=== PATIENT | male | born 1985 | race Caucasian/White ===

== ENCOUNTER 2020-03-28 21:11 | Emergency (ER) | payer OTHER, SELFPAY ==
--- OUTSIDE RECORDS SUMMARY | 2020-03-28 21:15 | XMS REPORT | Summary of Care ---
:1985 Author Organization [facility] Address [address] [place] [id number] Care Team Providers Name Role Phone DO Piyush Primary Care Provider Reason for Referral (Routine) Status Reason Specialty Diagnoses / Referred By Contact Refe rred To Procedures Contact New Request Diagnoses Morbid obesity with body mass index of 50 or higher Hussain Schwarz MD Syed, Procedures Discharge Follow-up: PCP TERRY PICKETT; [address] [place] [address] DO Terry [place], [place] [address] [place] [address] Phone: [facility] [place] [address] Fax: MRI/CAT Scan (STAT) Status Reason Specialty Diagnoses / Referred By Referred To Procedures Contact Contact New Request Diagnostic Diagnoses Suspected Covid-19 Virus Infection Hussain Schwarz, Radiology Procedures CT CHEST PULMONARY ANGIOGRAM [address] [place] [id number] Radiology Services (KELLI) Status Reason Specialty Diagnoses / Referred By Referred To Procedures Contact Contact New Request Diagnostic Diagnoses SOB (shortness of breath) Suspected Covid-19 Virus Infection Laci Puente Radiology Procedures XR CHEST 1 VW [place] [address] [address] Reason for Visit Reason Comments Cough Auth/Cert Status Reason Specialty Diagnoses / Referred By Referred To Procedures Contact Contact Emergency Medicine [facility] [address] [place] [address] Fax: Encounter Details Date Type Department Care Team Description 03/26/2020 - Emergency ADC Intensive Care Laci Puente, PAC [address] [facility] [address] [place] [address] Suspected Covid-19 03/27/2020 Unit Hussain Schwarz MD [address] [place] [id number] Virus Infection [address] [place] [address] [place], [place] [id number] Allergies Active Allergy Reactions Severity Noted Date Comments Aspirin Anaphylaxis 06/04/2014 Vancomycin Anaphylaxis 06/04/2014 Red man syndrom e documented as of this encounter (statuses as of 03/27/2020) Medications Medication Sig Dispensed Refills Start Date End Date Status foLIC acid 1 mg Take 1 tablet 30 tablet 0 04/19/2019 Active tabletIndications: by mouth Alcoholic cirrhosis daily. of liver with ascites lactulose 10 gram/15 Take 45 mL by 1 Bottle 3 05/15/2019 Active mL mouth 3 solutionIndications: (three) times Alcoholic cirrhosis daily. of liver with ascites propranolol 20 mg Take 1 tablet 60 tablet 2 05/15/2019 Active tabletIndications: by mouth 2 Alcoholic cirrhosis (two) times of liver with daily. ascites thiamine 100 mg Take 1 tablet 30 tablet 0 05/15/2019 Active tabletIndications: by mouth Alcoholic cirrhosis daily. of liver with ascites SPIRONOLACTONE 100 TAKE TWO (2) 60 tablet 1 12/30/2019 Active mg TABLET(S) BY tabletIndications: MOUTH ONCE A Alcoholic cirrhosis DAY. of liver with ascites SERTraline (ZOLOFT) Take 25 mg by 0 Active 25 mg tablet mouth daily. trazodone HCl Take 200 mg by 0 A ctive (TRAZODONE ORAL) mouth at bedtime. furosemide 80 mg Take one 30 tablet 2 06/17/2019 Di scontinued tabletIndications: tablet twice 0 Alcoholic cirrhosis daily for 5 of liver with days followed ascites by one tablet daily rifAXIMin (XIFAXAN) Take 1 tablet 60 tablet 5 06/18/2019 09/17 /202 Discontinued 550 mg by mouth 2 0 tabletIndications: (two) times Hepatic daily. encephalopathy documented as of this encounter (statuses as of 03/27/2020) Active Problems Problem Noted Date Suspected Covid-19 Virus Infection 03/26/2020 Alcoholic cirrhosis of liver with ascites 06/18/2019 Morbid obesity with body mass index of 50 or higher GI bleed 04/05/2019 Penile cellulitis 06/04/2014 documented as of this encounter (statuses as of 03/27/2020) Immunizations Name Administration Dates Next Due Influenza Virus Vaccine Quad .5 mL IM 6+ MO 04/18/2019 Pneumococcal Polysaccharide, PPSV23 (PNEUMOVAX) 04/18/2019 documented as of this encounter Social History Tobacco Use Types Packs/Day Years Used Date Former Smoker 1 10 Smokeless Tobacco: Never Used Alcohol Use Drinks/Week oz/Week Comments Yes 60 Cans of beer 60.0 Sex Assigned at Date Recorded Not on file COVID-19 Exposure Response Date Recorded In the last month, have you been in contact with No / Unsure 03/26/2020 11:11 AM CDT someone who was confirmed or suspected to have Coronavirus / COVID-19? documented as of this encounter Last Filed Vital Signs Vital Sign Reading Time Taken Comments Blood Pressure 128/81 03/27/2020 11:38 AM CDT Pulse 87 03/27/2020 11:38 AM CDT Temperature 36.8 C (98.3 F) 03/27/2020 11:38 AM CDT Respiratory Rate 16 03/27/2020 7:45 AM CDT Oxygen Saturation 91% 03/27/2020 11:38 AM CDT Inhaled Oxygen Concentration - - Weight 156.5 kg (345 lb) 03/27/2020 4:10 AM CDT Height - - Body Mass Index 48.12 11/09/2019 8:06 PM CDT documented in this encounter Discharge Instructions AttachmentsThe following attachments cannot be sent through Care Everywhere.Cold Virus, Understanding (Iraqi)Oxygen, Using at Home (Iraqi)documented in this encounter Progress Notes Danita Payton LMSW - 03/27/2020 2:37 PM CDTSummary: Inpatient Scheduling [facility]ICE PRES[facility] MARKETING [employer] DEVELOPMENT spoke with patient prior to discharge to assist with scheduling hospital follow up appointment.Pt was agreeable to assistance. JAJA was able to schedule patient with a hospital follow up with Dr. Pickett for 04/09/2020 at 2:50pm. Pt made aware that currently there are no other referral recommendations, but should any arise someone would be contacting him to assist with scheduling. Patient acknowledged. JAJA will document and assign referral once it is made available. Danita Payton LMSW Web Ui Software Engineer - Community Wellness and Outreach Community and Population Health [facility] [place] - 7th floor Office: [phone] (Not for patient use) [email or web address] Merlin Kelley RN - 03/27/2020 2:36 PM CDTCare Management Social Functional Assessment Patient Name: Adam Devi Age: [age] year old Sex: male Patient's Previous Admission Date at [facility]: 04/05/2019 Current diagnosis and co-morbidities: Suspected COVID 19 Virus Infection Readmission Questions: Was patient discharged from any acute care hospital within the last 30 days: No Social Functional Assessment: Primary language spoken/preferred: Iraqi Mental Status: Alert & Oriented to Person,Place & Time Information given by: Self Patient's support system: Parent Name and number of support system: Niurka Stuart mother [phone] Primary Senior Linux Unix Administrator: Self MPOA: Same as support system Living Arrangement: Home Address of living arrangement : [address] [place] [address] [address] [facility] Persons living in home: Same as support system Barriers to returning home: None Baseline functional status- ambulation: Independent Functional status-baseline personal care: Independent Baseline functional status- driving: Independent Baseline functional status- grocery shopping: Independent Functional status-baseline housekeeping: Independent Functional status-baseline meal prep: Independent Current functional status same as prior: Yes Do you have a PCP?: Yes Name of PCP: Terry Pickett Home Health Care Agency: No Provider Services: No DME Company: No Equipment: None Hemodialysis: No Funding Resources: Self Pay Prescription coverage plan: Self Pay Pharmacy where meds are filled: ([facility]) Anticipated services prior to disharge: Continue Medical Eval Expected mode of discharge transportation: Same as support system Additional info required for discharge planning: Pending medical evaluation Recommended discharge plan: DME Referral SFA Complete: Social Functional Assessment complete: Yes Alcohol Use Screening (AUDIT-C) How often do you have a drink containing alcohol?: Never SCORE: 0 Role of Care Management explained. Yes Merlin Kelley RN, BSN [facility] Director Of Patient Safety O [phone] Merlin Casillas RN - 03/27/2020 11:46 AM CDTHome O2 contract faxed to [facility] CM Admin, awaiting approval for unfunded DME contract. Merlin Kelley RN, BSN [facility] Director Of Patient Safety O [phone] Danita Mccarthy LMSW - 03/27/2020 11:27 AM CDTSummary: Inpatient Scheduling [facility] [employer]ETING [employer] DEVELOPMENT attempted to contact patient to assist with scheduling hospital follow up appointment. Pt did not answer either room or cell phone. LVM to return call to HFU team VICE PRESIDENT MARKETING [employer] DEVELOPMENT will attempt to reach out again at a later time. Danita Payton LMSW Web Ui Software Engineer - Community Wellness and Outreach Community and Population Health [facility]a Montes [place] - 7th floor Office: [phone] (Not for patient use) [email or web address] Cathi Bernard RT - 03/27/2020 11:17 AM CDTO2 Saturation at REST on Room Air = 92% EXERTION TEST O2 Saturation at Rest on Room Air = 92% O2 Saturation being Exerted on Room Air = 86% O2 Saturation being Exerted on 2 LPM of Oxygen = 95% documented in this encounter H&P Notes Flora Mooney FNP - 03/26/2020 5:16 PM CDT [facility] Hospitalist Admission H&P Date of Service: 03/26/2020 CHIEF COMPLAINT: cough HISTORY OF PRESENT ILLNESS Adam Devi is a 34 year old male with history of HTN, diabetes, alcohol cirrhosis who presents with gradual onset of a cough that presented 2 days ago. Patient worsening symptoms of shortness of breath, fatigue, diarrhea, nausea, vomiting, loss of appetite, and malaise. Patient reports he's been alcohol free for 6 months, he had a relapse. Patient denies fever, chills,chest pain radiating to arm or neck, leg or calf pain or edema PAST MEDICAL HISTORY Past Medical History: Diagnosis Date Alcohol dependence Cirrhosis, alcoholic Deliberate self-cutting Diabetes HTN (hypertension) Suicidal ideation PAST SURGICAL HISTORY History reviewed. No pertinent surgical history. ALLERGIES Allergies Allergen Reactions Aspirin Anaphylaxis Vancomycin Anaphylaxis Red man syndrome MEDICATIONS Current home medication list reviewed: Current Discharge Medication List STOP taking these medications SERTraline (ZOLOFT) 25 mg tablet Comments: Reason for Stopping: trazodone HCl (TRAZODONE ORAL) Comments: Reason for Stopping: SPIRONOLACTONE 100 mg tablet Comments: Reason for Stopping: furosemide 80 mg tablet Comments: Reason for Stopping: lactulose 10 gram/15 mL solution Comments: Reason for Stopping: propranolol 20 mg tablet Comments: Reason for Stopping: thiamine 100 mg tablet Comments: Reason for Stopping: foLIC acid 1 mg tablet Comments: Reason for Stopping: FAMILY HISTORY Family History Problem Relation Age of Onset No Significant Medical Problems Mother Cancer Maternal Grandmother SOCIAL HISTORY Social History Socioeconomic History Marital status: Single Spouse name: Not on file Number of children: Not on file Years of education: Not on file Highest education level: Not on file Occupational History Not on file Social Needs Financial resource strain: Not on file Food insecurity Worry: Not on file Inability: Not on file Transportation needs Medical: Not on file Non-medical: Not on file Tobacco Use Smoking status: Former Smoker Packs/day: 1.00 Years: 10.00 Pack years: 10.00 Smokeless tobacco: Never Used Substance and Sexual Activity Alcohol use: Yes Alcohol/week: 60.0 standard drinks Types: 60 Cans of beer per week Drug use: Not on file Sexual activity: Not on file Lifestyle Physical activity Days per week: Not on file Minutes per session: Not on file Stress: Not on file Relationships Social connections Talks on phone: Not on file Gets together: Not on file Attends sikhism service: Not on file Active member of club or organization: Not on file Attends meetings of clubs or organizations: Not on file Relationship status: Not on file Intimate partner violence Fear of current or ex partner: Not on file Emotionally abused: Not on file Physically abused: Not on file Forced sexual activity: Not on file Other Topics Concern Not on file Social History Narrative Lives with mom and grandmother REVIEW OF SYSTEMS Constitutional: negative fevers/chills, weight changes Eyes: negative acute blurry vision, eye discharge Ears, Nose, Mouth, Throat: negative dysphagia, runny nose, sore throat, tinnitus Cardiovascular: positive chest pain secondary to cough Respiratory: Positive sob, cough Gastrointestinal: Positive diarrhea, nausea, vomiting Genitourinary: Negative dysuria, hematuria Musculoskeletal: Positive myalgias Integumentray: negative rash, itching Neurological: negative syncope, focal weakness Psychiatric: negative hallucinations PHYSICAL EXAMINATION BP (!) 136/92 | Pulse 92 | Temp 36.7 C (98.1 F) | Resp 18 | Wt 131.5 kg (290 lb) | SpO2 95% | BMI 40.45 kg/m General: No acute distress, tremers HEENT: Normal oral mucosa, anicteric sclerae, NCAT Cardiovascular: RRR, strong symmetric radial pulses Lungs: CTAB Abdomen: Soft, NTND Musculoskeletal: Normal ROM, normal muscle mass Genitourinary: Normal Skin: No rash, lesions Neuro: AAOx3, no focal deficits Psych: Normal affect LABS - reviewed pertinent labs as below: CBC BMP PT/INR WBC x10^3 (/uL) Date Value 06/04/2014 6.9 WBC (10*3/L) Date Value 03/26/2020 4.03 (L) NA Date Value 03/26/2020 135 mmol/L 06/05/2014 135 MMOL/L No results found for: PT RBC x10^6 (/uL) Date Value 06/04/2014 4.84 RBC (10*6/L) Date Value 03/26/2020 4.38 K Date Value 03/26/2020 4.0 mmol/L 06/05/2014 4.4 MMOL/L INR (no units) Date Value 03/26/2020 1.4 PLT x10^3 (/uL) Date Value 06/04/2014 166 PLT (10*3/L) Date Value 03/26/2020 29 (LL) CALCIUM Date Value 03/26/2020 8.3 mg/dL (L) 06/05/2014 9.1 MG/DL HGB Date Value 03/26/2020 13.6 g/dL 06/04/2014 15.3 G/DL CL Date Value 03/26/2020 101 mmol/L 06/05/2014 102 MMOL/L aPTT HCT (%) Date Value 03/26/2020 40.0 06/04/2014 43.3 BUN Date Value 03/26/2020 5 mg/dL (L) 06/05/2014 6 MG/DL (L) APTT Patient (Seconds) Date Value 03/26/2020 38 CREATININE Date Value 03/26/2020 0.54 mg/dL (L) 06/05/2014 0.64 MG/DL IMAGING - reviewed, pertinent results as below: Hospital Encounter on 03/26/20 CT CHEST PULMONARY ANGIOGRAM Narrative HISTORY: Rule out P.E. TECHNIQUE: Contrast-enhanced 64-mutidetector CT scan of the chest was completed with intravenous injection of Omnipaque-350 non ionic contrast medium. Subsequently numerous sagittal, coronal and MIP reformations were generated. FINDINGS: Visualized portions of the thyroid gland appear normal. No abnormalities seen in the trachea or central bronchial airways. Contrast bolus opacification of the pulmonary arterial circulation is suboptimal, therefore, only large central pulmonary thromboemboli can be ruled out by this examination. No acute pneumonia. No pleural effusion or pericardial effusion. No pneumothorax or pneumomediastinum. Calcified granuloma noted in the left apical lung (55:385) with calcifications noted in the left hilar/perihilar lymph nodes. 4 mm nodule in the anterior right upper lobe (164:385). 2 mm nodule right lower lung (191:385). No enlarged lymph nodes are seen in the narda or the mediastinum. No significant coronary atherosclerosis. Short sliding hiatal hernia noted. Visualized upper abdomen showed liver findings of chronic liver disease with portal hypertension causing splenomegaly, dilated portal venous circulation and recanalized umbilical vein. Numerous gallstones are seen in the dependent portion of the gallbladder lumen without any signs of acute cholecystitis. CONCLUSIONS: 1. Suboptimal contrast bolus in the pulmonary arterial circulation. Therefore, only large pulmonary thromboemboli in the central pulmonary articular circulation can be ruled out by this examination. 2. Calcified granuloma in the left apical lung and 2 noncalcified nodules. 3. Abnormal CT appearance of liver consistent with chronic liver disease such as cirrhosis with portal hypertension. No ascites. 4. Numerous small gallstones without any evidence of acute cholecystitis. XR CHEST 1 VW Narrative HISTORY: SOB. FINDINGS: AP view of the chest showed is obtained and compared with 04/12/2019 study. Cardiac size is upper normal. Central pulmonary arteries are slightly dilated without any helen acute interstitial pulmonary edema. No acute pneumonia, pleural effusion, pulmonary congestion detected. CONCLUSIONS: No radiographic signs of acute cardiopulmonary disease. No new findings when compared with 04/12/2019 study. ASSESSMENT/PLAN Chance Paul Enriquez 34-year-old white male admitted for #Suspect Covid 19 virus PUI Complain of shortness of breath O2 sats 94% on RA Vitamin C 1000 mg Daily Zinc 220 mg Daily Supportive care Respiratory panel ordered Procalcitonin, C reactive, LDH, pending results D dimer 0.69 Ct chest pulmonary no PE, calcifications did granuloma left apical lobe, chronic liver disease with portal hypertension no ascites small gallstones no acute cholecystitis Legionella, strept pneumococcal Pending results Chest Xray findings normal findings PPE protocol followed #ETOH abuse/withdrawal CIWA precaution Serax tapered dose Ammonia 18 Continue lactulose 45 ML's 3 times a day Propranolol 20 mg Bid Folic acid + thiamine daily Spironolactone 100 mg daily started 50 mg daily Lasix 80 mg daily started 40 mg daily Rifaximin 550 mg bid Patient does not take he "cant afford it" #HTN Propranolol 20 mg BID Lasix 40 mg daily #DM A1c pending Patient reports not DM Prophylaxis: DVT- SCD Stress Ulcer: no indication for prophylaxis Advanced Care Planning (Z71.89) Above assessment and plan discussed at length with patient, patient expressed full understanding. Questions and concerned addressed, I spent 18 minutes discussing the advance care plan. Surrogate decision maker: self Level of care expected after discharge: home Code status: full code Smoking Cessation: (Z71.6) Tobacco user?: Former smoker Observation [place] WHEEL BRAIDER was viewed during this stay KAYLAN Muir Associated attestation - Hussain Schwarz MD - 03/26/2020 6:16 PM CDTI have independently seen and evaluated this patient. I agree with the note below including physicalexam and plan. In summary, patient is admitted for suspected COVID pneumonia. D-dimer elevated. CT PE pending. Hx alcoholic cirrhosis, severe thrombocytopenia but no evidence of DIC. CK very elevated concerning for rhabdomyolysis, start IVF. Trend CK. Rest of plan per below. documented in this encounter ED Notes Isela Ng RN - 03/26/2020 11:17 AM CDTPatient arrived via private car with c/o cough, sob, and fatigue. Symptoms began 2 days ago. Patient ambulated in place x1 minute; sats maintained 91% on room air. documented in this encounter Miscellaneous Notes Care Plan - Niki Sparks RN - 03/27/2020 5:17 AM CDT Problem: Pain Goal: Control of pain at or below patient's documented comfort goal Outcome: Progressing as expected Goal: Reduction in pain sensation Outcome: Progressing as expected Problem: Falls, Risk of Goal: Absence of falls Outcome: Progressing as expected Problem: Respiratory Function - Impaired Goal: Able to cough effectively Outcome: Progressing as expected Goal: Adequate oxygenation Outcome: Progressing as expected Goal: Adequate work of breathing Outcome: Progressing as expected Problem: Discharge Planning Goal: Absence of venous thromboembolism Outcome: Progressing as expected Goal: Adequate for discharge Outcome: Progressing as expected Goal: Effective communication Outcome: Progressing as expected Problem: Respiratory Function - Impaired Goal: Adequate oxygenation Outcome: Progressing as expected Goal: Adequate work of breathing Outcome: Progressing as expected D Nurse Note - Sheryl Norris RN - 03/26/2020 3:11 PM CDTNurse Report Report given to KLAUS Brink in ICU. Chief complaint, assessment findings and orders reviewed. Planof care discussed. Sharon Norris RN documented in this encounter Plan of Treatment Date Type Specialty Care Team Description 04/09/2020 Office Visit Internal Medicine Piyush, Colleen [address], [place] [phone] Name Type Priority Associated Diagnoses Date/Ti me BLOOD CULTURE SCREEN LAB STAT SOB (shortn ess of breath) 03/26/2020 1:01 PM CDT Suspected Covid-19 Virus Infection BLOOD CULTURE SCREEN LAB STAT SOB (shortn ess of breath) 03/26/2020 12:42 PM CDT Suspected Covid-19 Virus Infection Name Type Priority Associated Diagnoses Order S chedule CBC with Differential LAB Routine EVERY MORNING AT 0400 for 2 Occurrenc es starting 2019 until 0, 1 completed Basic Metabolic Panel (NA, LAB Routine E VERY MORNING AT 0400 K, CL, CO2, GLUCOSE, BUN, fo r 2 Occurrences CREATININE, CA) starting until 0, 1 completed VITAMIN D, 25-OH LAB Routine ONCE for 1 Occurrences starting 2019 until 0 CREATINE KINASE LAB Routine EVERY MORNIN G AT 0500 for 3 Days star ting 03/27/2020 unti l 03/29/2020, 1 c ompleted Health Maintenance Due Date Last Done Comments VARICELLA VACCINES (1 of 2 - 2-dose 1985 childhood series) DTaP,Tdap,and Td Vaccines (1 - Tdap) 12/19/2003 INFLUENZA VACCINE (#1) 2020 04/18/2019 Depression Screening 07/25/2020 07/25/2019, 04/14/2019 PNEUMOCOCCAL 0-64 YEARS COMBINED SERIES Completed 04/18/20 19 documented as of this encounter Procedures Procedure Name Priority Date/Time Associated Comments Diagnosis CBC WITH DIFF Routine 03/27/2020 4:23 Results fo r this AM CDT procedure are i n the results section. BASIC METABOLIC PANEL Routine 03/27/2020 4:23 Re sults for this (NA, K, CL, CO2, AM CDT procedure a re in GLUCOSE, BUN, the results CREATININE, CA) section. HEPATIC FUNCTION PANEL Add-on 03/27/2020 4:23 R esults for this ([id number]) AM CDT procedure are i n (ALB,T.PRO,BILI the results T,BU/BC,ALT,AST,ALK section. PHOS) MAGNESIUM Routine 03/27/2020 4:23 Results for this AM CDT procedure are i n the results section. CREATINE KINASE Routine 03/27/2020 4:23 Results for this AM CDT procedure are i n the results section. URINALYSIS Routine 03/26/2020 5:49 Results for this PM CDT procedure are i n the results section. RESPIRATORY PANEL BY STAT 03/26/2020 4:32 Res ults for this PCR PM CDT procedure are i n the results section. LACTIC ACID WHOLE STAT 03/26/2020 4:30 Result s for this BLOOD PM CDT procedure are i n the results section. PROCALCITONIN STAT 03/26/2020 4:29 Results fo r this PM CDT procedure are i n the results section. AMMONIA, PLASMA Routine 03/26/2020 4:29 Results for this PM CDT procedure are i n the results section. COVID-19 (PCR STAT 03/26/2020 3:23 Results fo r this MOLECULAR TESTING) PM CDT procedure are in the results section. CT CHEST PULMONARY STAT 03/26/2020 3:08 Suspected Covid-19 Results for this ANGIOGRAM PM CDT Virus Infection procedure ar e in the results section. FIBRINOGEN STAT Add-On 03/26/2020 1:33 Results for this PM CDT procedure are i n the results section. ACTIVATED PARTIAL STAT 03/26/2020 1:33 Suspected Covid-19 Results for this THRMPLAS ERIKA PM CDT Virus Infection procedure ar e in the results section. D-DIMER STAT Add-On 03/26/2020 1:33 Results for this PM CDT procedure are i n the results section. PROTHROMBIN TIME / INR STAT 03/26/2020 1:33 Suspected Covi d-19 Results for this PM CDT Virus Infection procedure ar e in the results section. BLOOD CULTURE SCREEN STAT 03/26/2020 1:01 SOB (shortness o f PM CDT breath) Suspected Covid-19 Virus Infection COVID-19 (ID NOW RAPID STAT 03/26/2020 1:00 SOB (shortness of Results for this TESTING) PM CDT breath) procedure are in Suspected Covid-19 the resul ts Virus Infection section. XR CHEST 1 VW KELLI 03/26/2020 12:56 SOB (shortness of Resul ts for this PM CDT breath) procedure are in Suspected Covid-19 the resul ts Virus Infection section. DIFF CONSULT Routine 03/26/2020 12:53 Results for this INTERPRETATION PM CDT procedure are in the results section. CBC WITH DIFF STAT 03/26/2020 12:53 SOB (shortness of Resul ts for this PM CDT breath) procedure are in Suspected Covid-19 the resul ts Virus Infection section. DIFF CONSULT STAT Add-On 03/26/2020 12:53 Results for this INTERPRETATION PM CDT procedure are in the results section. COMP. METABOLIC PANEL STAT 03/26/2020 12:53 SOB (shortness of Results for this (10422) PM CDT breath) procedure are in Suspected Covid-19 the resul ts Virus Infection section. THYROID STIMULATING STAT Add-On 03/26/2020 12:53 Resu lts for this HORMONE PM CDT procedure are i n the results section. MAGNESIUM STAT 03/26/2020 12:53 SOB (shortness of Result s for this PM CDT breath) procedure are in Suspected Covid-19 the resul ts Virus Infection section. CREATINE KINASE STAT Add-On 03/26/2020 12:53 Results for this PM CDT procedure are i n the results section. LACTIC ACID WHOLE STAT 03/26/2020 12:52 SOB (shortness of R esults for this BLOOD PM CDT breath) procedure are in Suspected Covid-19 the resul ts Virus Infection section. BLOOD CULTURE SCREEN STAT 03/26/2020 12:42 SOB (shortness o f PM CDT breath) Suspected Covid-19 Virus Infection EKG-12 LEAD Routine 03/26/2020 12:18 PM CDT NOTICE OF PRIVACY Routine 03/26/2020 11:11 PRACTICES AM CDT CONSENT/REFUSAL FOR Routine 03/26/2020 11:11 DIAGNOSIS AND AM CDT TREATMENT documented in this encounter Results HEPATIC FUNCTION PANEL (16412) (ALB,T.PRO,BILI T,BU/BC,ALT,AST,ALK PHOS) (03/27/2020 4:23 AM CDT) Pathologist Sig nature TOTAL BILI 1.8 (H) 0.1 - 1.1 mg/dL [facility] BILI UNCON 1.4 (H) 0.1 - 1.1 mg/dL [facility] BILI CONJ 0.0 0.0 - 0.3 mg/dL [facility] T PROTEIN 6.2 (L) 6.3 - 8.2 g/dL [facility] ALBUMIN 2.8 (L) 3.5 - 5.0 g/dL [facility] ALK PHOS 105 34 - 122 U/L [facility] ALTv 37 5 - 50 U/L [facility] AST(SGOT) 98 (H) 13 - 40 U/L [facility] Specimen Blood - LINE, VENOUS Performing Organization Address [facility] Phone Number [facility] CLIA: [id number] [place] [address] CREATINE KINASE (03/27/2020 4:23 AM CDT) Pathologist Sig [facility] CK 1,161 (H) 33 - 194 U/L [facility] Specimen Blood - LINE, VENOUS Performing Organization Address [facility] Phone Number [facility] CLIA: [id number] [place] [address] Magnesium Serum (03/27/2020 4:23 AM CDT) Pathologist Sig [facility] MAGNESIUM 2.0 1.7 - 2.4 mg/dL [facility] Specimen Blood - LINE, VENOUS Performing Organization Address [facility] Phone Number [facility] CLIA: [id number] [place] [address] Basic Metabolic Panel (NA, K, CL, CO2, GLUCOSE, BUN, CREATININE, CA) (03/27/2020 4:23 AM CDT) Pathologist Sig nature NA 133 (L) 135 - 145 [facility] mmol/L [facility] K 3.6 3.5 - 5.0 [facility] mmol/L [facility] CL 101 98 - 108 mmol/L [facility] CO2 TOTAL 28 23 - 31 mmol/L [facility] AGAP 4 2 - 16 [facility] BUN 9 7 - 23 mg/dL [facility] GLUCOSE 135 (H) 70 - 110 mg/dL [facility] CREATININE 0.61 0.60 - 1.25 [facility] mg/dL [facility] CALCIUM 7.9 (L) 8.6 - 10.6 [facility] mg/dL [facility] eGFR Calculation 150.4 mL/min/1.73m2 [facility] ([facility] Eritrean) eGFR Calculation 182.3 mL/min/1.73m2 [facility] ([facility] Specimen Blood - LINE, VENOUS Narrative Performed At Association of Glomerular Filtration Rate (GFR) [facility] and Staging of Kidney Disease* + + +- + | GFR (mL/min/1.73 m2) | With Kidney Damage | Without Kidney Damage + + +- + | >90 | Stage one | Normal + + +- + | 60-89 | Stage two | Decreased GFR + + +- + | 30-59 | Stage three | Stage three + + +- + | 15-29 | Stage four | Stage four + + +- + | <15 (or dialysis) | Stage five | Stage five + + +- + *Each stage assumes the associated GFR level has been in effect for at least three months. Stages 1 to 5, with or without kidney disease, indicate chronic kidney disease. Notes: Determination of stages one and two (with eGFR >59mL/min/1.73 m2) requires estimation of kidney damage for at least three months as defined by structural or functional abnormalities of the kidney, manifested by either: Pathological abnormalities or Markers of kidney damage (including abnormalities in the composition of the blood or urine or abnormalities in imaging tests). Performing Organization Address City/State/Zipcode Phone Number [facility] CLIA: [id number] [place] [address] CBC with Differential (03/27/2020 4:23 AM CDT) WBC 4.54 4.20 - 10.70 [facility] 10*3/L [facility] RBC 4.00 (L) 4.26 - 5.52 [facility] 10*6/L [facility] HGB 12.5 12.2 - 16.4 [facility] g/dL [facility] HCT 37.1 (L) 38.4 - 49.3 % [facility] MCV 92.8 81.7 - 95.6 [facility] LABORATORY MCH 31.3 26.1 - 32.7 [facility]ORY MCHC 33.7 31.2 - 35.0 [facility] g/dL [facility] RDW-SD 48.0 38.5 - 51.6 [facility] LABORATORY RDW-CV 14.1 12.1 - 15.4 % [facility] PLT 28 (LL) 150 - 328 [facility] 10*3/L [facility] MPV 12.3 9.8 - 13.0 fL [facility] IPF % 8.1Comment: Platelet 1.2 - 10.7 % [facility] count measured by HOSPITAL fluorescence method. LABORATORY NRBC/100 WBC 0.0 0.0 - 10.0 [facility] /100 WBCs [facility] NRBC x10^3 <0.01 10*3/L [facility] GRAN MAT (NEUT) % 54.6 % [facility] IMM GRAN % 0.40 % [facility] LYMPH % 20.5 % [facility] MONO % 19.4 % [facility] EOS % 4.2 % [facility] BASO % 0.9 % [facility] GRAN MAT 2.48 1.99 - 6.95 [facility] x10^3(ANC) 10*3/uL [facility] IMM GRAN x10^3 <0.03 0.00 - 0.06 [facility] 10*3/uL [facility] LYMPH x10^3 0.93 (L) 1.09 - 3.23 [facility] 10*3/uL [facility] MONO x10^3 0.88 0.36 - 1.02 [facility] 10*3/uL [facility] EOS x10^3 0.19 0.06 - 0.53 [facility] 10*3/uL [facility] BASO x10^3 0.04 0.01 - 0.09 [facility] 10*3/uL [facility] Specimen Blood - LINE, VENOUS Performing Organization Address City/State/Zipcode Phone Number [facility] CLIA: [id number] [place] [address] URINALYSIS (03/26/2020 5:49 PM CDT) Pathologist Sig nature APPEARANCE Clear Clear [facility] COLOR Carol (A) Yellow [facility] PH 6.0 4.8 - 8.0 [facility] SP GRAVITY 1.060 (H) 1.003 - 1.030 [facility] GLU U QUAL Normal Normal [facility] BLOOD 3+ (A) Negative [facility] KETONES Negative Negative [facility] PROTEIN 500 mg/dL (A) Negative [facility] UROBILIN 4.0 mg/dL (A) Normal [facility] BILIRUBIN 2 mg/dL (A) Negative [facility] NITRITE Negative Negative [facility] LEUK SEBAS Negative Negative [facility] RBC/HPF 53 (H) 0 - 3 HPF [facility] WBC/HPF 10 (H) 0 - 5 HPF [facility] BACTERIA Negative Negative [facility] SQ EPITH 1 HPF [facility] Ictotest Positive [facility] Specimen Urine - URINE, CLEAN CATCH Performing Organization Address City/State/Zipcode Phone Number [facility] CLIA: [id number] [place] [address] RESPIRATORY PANEL BY PCR (03/26/2020 4:32 PM CDT) Adenovirus Negative Negative [facility] Coronavirus HKU1 Negative Negative [facility] Coronavirus NL63 Negative Negative [facility] Coronavirus 229E Negative Negative [facility] Coronavirus OC43 Negative Negative [facility] Human Metapneumovirus Negative Negative [facility] Human Positive (A) Negative [facility] Rhinovirus/Enterovirus SERVICES Influenza A Negative Negative [facility] Influenza B Negative Negative [facility] Parainfluenza Virus 1 Negative Negative [facility] Parainfluenza Virus 2 Negative Negative [facility] Parainfluenza Virus 3 Negative Negative [facility] Parainfluenza Virus 4 Negative Negative [facility] Respiratory Syncytial Negative Negative [facility] Virus SERVICES Bordetella parapertussis Negative Negative [facility] Bordetella pertussis Negative Negative [facility] Chlamydia pneumoniae Negative Negative [facility] Mycoplasma pneumoniae Negative Negative [facility] Specimen Swab - NASOPHARYNGEAL SWAB Narrative Performed At Negative: [facility] A negative result does not rule-out infection. This assay does not test for all potential infectio us agents. Positive: A positive test result does not necessarily indicate t he presence of viable organism. Performing Organization Address City/State/Zipcode Phone Number [facility] CLIA: [id number] [place] [address] [place] [address] Lactic Acid Whole Blood (03/26/2020 4:30 PM CDT) Pathologist Sig scott LACTIC ACID 2.01 mmol/L [facility] Specimen Blood - ARM, LEFT Performing Organization Address [facility] Phone Number [facility] CLIA: [id number] [place] [address] AMMONIA, PLASMA (03/26/2020 4:29 PM CDT) Pathologist Sig nature AMMONIA 18 9 - 33 umol/L [facility] Specimen Blood - ARM, LEFT Performing Organization Address [facility] Phone Number [facility] CLIA: [id number] [place] [address] PROCALCITONIN (03/26/2020 4:29 PM CDT) Pathologist Sig nature Procalcitonin 0.05 <0.07 ng/mL [facility] Specimen Blood - ARM, RIGHT Narrative Performed At INTERPRETATION OF PROCALCITONIN RESULTS IN ADULTS >= 1 8 [facility] YEARS OF AGE Initiation and discontinuation of antibiotics on patie nts with suspected or confirmed Lower Respiratory Tract Infection in Adults >= 18 years of age. + + + +----- ------ + |Procalcitonin |Interpretation |Antibiotic |Considerations |ng/mL | |recommend ation | + + + +----- ------ + | <0.1 | Bacterial | Strongly | | | infection very | discouraged | Overruling: | | unlikely | | Clinically unstable + + + + H igh risk for adverse | <0.25 | Bacterial | Discouraged | outcome | | infection | | SEE IMPORTANT NOTE | | unlikely | | + + + +----- ------ + | >=0.25 | Bacterial | Encouraged | | | infection | | | | likely | | Consider treatment failure + + + + if l evels does not decrease | >0.5 | Bacterial | Strongly | appropriately | | infection very | encouraged | | | likely | | + + + +----- ------ + Discontinuation of antibiotics in high-acuity patients with suspected or confirmed sepsis in Adults >= 18 years of age. + + + +----- ------ + |Procalcitonin |Interpretation |Antibiotic |Considerations |ng/mL | |recommend ation | + + + +----- ------ + | <0.25 | Bacterial | Strongly | | | infection very | discouraged | Overruling: | | unlikely | | Clinically unstable + + + + H igh risk for adverse | <0.5 or drop | Bacterial | Discouraged | outcome | >80% from | infection | | SEE IMPORTANT NOTE | highest PCT | unlikely | | | level | | | + + + +----- ------ + | >=0.5 | Bacterial | Encouraged | | | infection | | | | likely | | Consider treatment failure + + + + if l evels does not decrease | >1.0 | Bacterial | Strongly | appropriately | | infection very | encouraged | | | likely | | + + + +----- ------ + Percentage of drop of Procalcitonin calculation for Discontinuation of antibiotics in high-acuity patients with suspected or confirmed sepsis in Adults >= 18 years of age. Procalcitonin highest{}-Procalcitonin current{} Delta Procalcitonin = x100% Procalcitonin current {} IMPORTANT NOTE: Procalcitonin may be elevated without bacterial infection by physiologic stress related to t rauma, villalta, chronic dialysis, metastatic cancer, surgery in the past seven days, malaria, some fungal infections, and some forms of vasculitis. The interpretation algorithm may not apply to patients with immunosuppression (equivalent o f >10 mg of prednisone daily), HIV with CD4 cell count < 350 cells/mm3, active malignancy on systemic chemotherapy, solid organ transplant or hematopoietic stem cell transplant ation, or hospital acquired pneumonia. Additionally, some cli nical trials of procalcitonin have excluded patients with sh ock requiring vasopressor use, acute respiratory failure requiring mechanical ventilation, or those with known lung abscess/empyema. For further information please refer to: [email or web address] Performing Organization Address [facility] Phone Number [facility] CLIA: [id number] [place] [address] [place] [address] CORONAVIRUS COVID-19 TESTING (03/26/2020 3:23 PM CDT) Pathologist Sig scott SARS-CoV-2 PCR Not Detected Not Detected [facility] Specimen Swab - NASOPHARYNGEAL SWAB Narrative Performed At [employer] SARS-CoV-2 Assay is a nucleic acid [facility] amplification test intended for the qualitative detect ion of RNA from SARS-CoV-2 from nasopharyngeal (TERRAPIN FISHER) specimens . It is used under Emergency Use Authorizatio n (EUA) by FDA. A positive result is indicative of the presence of SARS-CoV-2 RNA. Clinical correlation with patient hi story and other diagnostic information is necessary to deter mine patient infection status. A negative (Not Detected) result does not preclude SARS-CoV-2 infection. Clinical correlation with danna ent history and other diagnostic information should be use d in patient management decisions. Invalid: Unable to generate a valid test result on thi s specimen. Please submit a new specimen for repeat te sting if clinically indicated. Performing Organization Address [facility] Phone Number [facility] CLIA: [id number] [place], [place] [id number] [phone] [place] [address] CT CHEST PULMONARY ANGIOGRAM (03/26/2020 3:08 PM CDT) Specimen Narrative Performed At HISTORY: Rule out P.E. PACS/VR/DOSE TECHNIQUE: Contrast-enhanced 64-mutidete ctor CT scan of the chest was completed with intravenous injection of Omnipaque-35 0 non ionic contrast medium. Subsequently numerous sagittal, coronal and LA P reformations were generated. FINDINGS: Visualized portions of the thy roid gland appear normal. No abnormalities seen in the trachea or fabiola tral bronchial airways. Contrast bolus opacification of the pulm onary arterial circulation is suboptimal, therefore, only large centra l pulmonary thromboemboli can be ruled out by this examination. No acute pneumonia. No pleural effusion or pericardial effusion. No pneumothorax or pneumomediastinum. Calci fied granuloma noted in the left apical lung (55:385) with calcifications noted in the left hilar/perihilar lymph nodes. 4 mm nodule in the anterior right upper lobe (164:385). 2 mm nodule right lower lung (191:385). No enlarged lymph nodes are seen in the narda or the mediastinum. No significant coronary atherosclerosis. Short sliding hiatal hernia noted. Visua lized upper abdomen showed liver findings of chronic liver disease with p ortal hypertension causing splenomegaly, dilated portal venous circulation and re canalized umbilical vein. Numerous gallstones are seen in th e dependent portion of the gallbladder lumen without any signs of a cute cholecystitis. CONCLUSIONS: 1. Suboptimal contrast bolus in the pulm onary arterial circulation. Therefore, only large pulmonary thromboe mboli in the central pulmonary articular circulation can be ruled out b y this examination. 2. Calcified granuloma in the left apical lung and 2 n oncalcified nodules. 3. Abnormal CT appearance of liver consi stent with chronic liver disease such as cirrhosis with portal hypertensi on. No ascites. 4. Numerous small gallstones without any evidence of a cute cholecystitis. Procedure Note [facility], Radiant Results Inft User - 2019 3:29 PM CDT HISTORY: Rule out P.E. TECHNIQUE: Contrast-enhanced 64-mutidete ctor CT scan of the chest was completed with intravenous injection of Omnipaque-350 non ionic contrast medium. Subsequently numerous sagittal, coronal and MIP reformations were generated. FINDINGS: Visualized portions of the thy roid gland appear normal. No abnormalities seen in the trachea or fabiola tral bronchial airways. Contrast bolus opacification of the pulm onary arterial circulation is suboptimal, therefore, only large centra l pulmonary thromboemboli can be ruled out by this examination. No acute pneumonia. No pleural effusion or pericardial effusion. No pneumothorax or pneumomediastinum. Calci fied granuloma noted in the left apical lung (55:385) with calcifications noted in the left hilar/perihilar lymph nodes. 4 mm nodule in the anterior right upper lobe (164:385). 2 mm nodule right lower lung (191:385). No enlarged lymph nodes are seen in the narda or the mediastinum. No significant coronary atherosclerosis. Short sliding hiatal hernia noted. Visua lized upper abdomen showed liver findings of chronic liver disease with p ortal hypertension causing splenomegaly, dilated portal venous circ ulation and recanalized umbilical vein. Numerous gallstones are seen in th e dependent portion of the gallbladder lumen without any signs of a cute cholecystitis. CONCLUSIONS: 1. Suboptimal contrast bolus in the pulm onary arterial circulation. Therefore, only large pulmonary thromboe mboli in the central pulmonary articular circulation can be ruled out b y this examination. 2. Calcified granuloma in the left apica l lung and 2 noncalcified nodules. 3. Abnormal CT appearance of liver consi stent with chronic liver disease such as cirrhosis with portal hypertensi on. No ascites. 4. Numerous small gallstones without any evidence of acute cholecystitis. Performing Organization Address City/State/Zipcode Phone Number PACS/VR/DOSE D-DIMER (03/26/2020 1:33 PM CDT) Pathologist Sig nature D-DIMER 0.69 (H) <0.41 g/mL (FEU) [facility] Specimen Blood - VENOUS Narrative Performed At This test may be used in conjunction with a [facility] clinical pretest probability (PTP) assessment model to exclude venous thromboembolism (VTE) in patients suspected of deep venous thrombosis (DVT) and pulmonary embolism (PE) A D-Dimer value less than 0.50 g/ml (FEU) has a negative predicative value of 96 to 100% (95% CI)and 97 to 100% (95% CI) as an aid in the diagnosis of deep vein thrombosis (DVT) and pulmonary embolism when there is low or moderate pretest probability of PE or DVT. D-Dimer values are expressed in initial fibrinogen equivalent units (FEU)" The assay results should be used with other information, including the clinical context, in forming a diagnosis. Performing Organization Address [facility] Cent[facility] Phone Number [facility] CLIA: [id number] [place] [address] FIBRINOGEN (03/26/2020 1:33 PM CDT) [facility] Fibrinogen 407 214 - 470 mg/dL [facility] Specimen Blood - VENOUS Performing Organization Address [facility] Phone Number [facility] CLIA: [id number] [place] [address] LABORATORY [address] [facility] aPTT (03/26/2020 1:33 PM CDT) [facility] APTT Patient 38 23 - 38 Seconds [facility] Specimen Blood - VENOUS Narrative Performed At The [facility] patient population mean normal value [facility] for aPTT is 30 seconds. Performing Organization Address [facility] Phone Number [facility] CLIA: [id number] [place] [address] PROTHROMBIN TIME / INR (03/26/2020 1:33 PM CDT) [facility] PROTIME PATIENT 16.1 (H) 12.0 - 14.7 [facility] LABORATORY INR 1.4Comment: Normal [facility] INR <1.1; Warfarin [facility] Therapeutic range LABORATORY 2.0 to 3.0 or 2.5 to 3.5, depending upon the indications. Specimen Blood - VENOUS Performing Organization Address [facility] Phone Number [facility] CLIA: [id number] [place] [address] [place] [address] COVID-19 (ID NOW RAPID TESTING) (03/26/2020 1:00 PM CDT) [facility] SARS-CoV-2 Rapid ID Not Detected Not Detected [facility] Specimen Swab - NASOPHARYNGEAL SWAB Narrative Performed At [facility] COVID-19 Assay is an isothermal nucleic [facility] acid amplification test intended for the qualitative detection of nucleic acid from SARS-CoV-2 viral RNA in nasopharyngeal (TERRAPIN FISHER) specimens. It is used under Emergency Use Authorization (EUA) by FDA. The limit of detection (LOD) of the assay is 125 Genome Equivalents/mL. A positive result is indicative of the presence of SARS-CoV-2 RNA. Clinical correlation with patient history and other diagnostic information is necessary to determine patient infection status. A negative (Not Detected) result does not preclude SARS-CoV-2 infection. In patients with clinical symptoms and other tests that are consistent with SARS-CoV-2 infection, negative results should be treated as presumptive negative and a new specimen should be tested with alternative PCR molecular test. Invalid: Please collect a new specimen for repeat patient testing if clinically indicated. Performing Organization Address City/State/Zipcode Phone Number [facility] CLIA: [id number] [place] [address] XR CHEST 1 VW (03/26/2020 12:56 PM CDT) Specimen Narrative Performed At HISTORY: SOB. PACS/VR/DOSE FINDINGS: AP view of the chest showed is obtained and compared with 04/12/2019 study. Cardiac size is upper normal. Central pulmonary arteries are slightly dilated without any helen acute interstit ial pulmonary edema. No acute pneumonia, pleural effusion, pu lmonary congestion detected. CONCLUSIONS: No radiographic signs of acute cardiopulm onary disease. No new findings when compared with 04/12/2019 [facility]. Procedure Note [facility], Radiant Results Inft User - 2019 1:09 PM CDT HISTORY: SOB. FINDINGS: AP view of the chest showed i s obtained and compared with 04/12/2019 study. Cardiac size is upper n ormal. Central pulmonary arteries are slightly dilated without any helen a cute interstitial pulmonary edema. No acute pneumonia, pleural effusion, pu lmonary congestion detected. CONCLUSIONS: No radiographic signs of ac hamilton cardiopulmonary disease. No new findings when compared with 04/12/[facility]. Performing Organization Address City/State/Zipcode Phone Number PACS/VR/DOSE DIFF CONSULT INTERPRETATION (03/26/2020 12:53 PM CDT) Specimen Blood - VENOUS Narrative Performed At [facility] WBC: Leukopenia with absolute lymphopenia, reactive monocytes and occasional toxic neutrophi ls. RBC: Normocytic normochromic RBC population mild poikilocytosis including rare ovalocytes and rare spherocytes. Platelets: Thrombocytopenia with rare large forms. Sug gest hematology consultation. Performing Organization Address City/[facility]/Zipcode Phone Number [facility] CLIA: [id number] [place] [address] [place] [address] THYROID STIMULATING HORMONE (03/26/2020 12:53 PM CDT) Pathologist Sig nature TSH 2.64 0.45 - 4.70 mIU/L [facility] Specimen Blood - VENOUS Performing Organization Address [facility] Phone Number [facility] CLIA: [id number] [place] [address] CREATINE KINASE (03/26/2020 12:53 PM CDT) Pathologist Sig nature CK 2,237 (H) 33 - 194 U/L [facility] Specimen Blood - VENOUS Performing Organization Address [facility] Centercomi Phone Number [facility] CLIA: [id number] [place] [address] MAGNESIUM (03/26/2020 12:53 PM CDT) Pathologist Sig nature MAGNESIUM 1.4 (L) 1.7 - 2.4 mg/dL [facility] Specimen Blood - VENOUS Performing Organization Address [facility] Phone Number [facility] CLIA: [id number] [place] [address] COMP. METABOLIC PANEL ([id number]) (03/26/2020 12:53 PM CDT) NA 135 135 - 145 [facility] mmol/L [facility] K 4.0 3.5 - 5.0 [facility] mmol/L [facility] CL 101 98 - 108 mmol/L [facility] CO2 TOTAL 27 23 - 31 mmol/L [facility] AGAP 7 2 - 16 [facility] BUN 5 (L) 7 - 23 mg/dL [facility] GLUCOSE 110 70 - 110 mg/dL [facility] CREATININE 0.54 (L) 0.60 - 1.25 [facility] mg/dL [facility] TOTAL BILI 2.1 (H) 0.1 - 1.1 mg/dL [facility] CALCIUM 8.3 (L) 8.6 - 10.6 [facility] mg/dL [facility] T PROTEIN 7.2 6.3 - 8.2 g/dL [facility] ALBUMIN 3.4 (L) 3.5 - 5.0 g/dL [facility] ALK PHOS 126 (H) 34 - 122 U/L [facility] ALTv 43 5 - 50 U/L [facility] AST(SGOT) 113 (H) 13 - 40 U/L [facility] eGFR Calculation 173.1 mL/min/1.73m2 [facility] [place]) eGFR Calculation 209.9 mL/min/1.73m2 [facility] () [facility] Specimen Blood - VENOUS Narrative Performed At [facility] of Glomerular Filtration Rate (GFR) [facility] and Staging of Kidney Disease* + + +- + | GFR (mL/min/1.73 m2) | With Kidney Damage | Without Kidney Damage + + +- + | >90 | Stage one | Normal + + +- + | 60-89 | Stage two | Decreased GFR + + +- + | 30-59 | Stage three | Stage three + + +- + | 15-29 | Stage four | Stage four + + +- + | <15 (or dialysis) | Stage five | Stage five + + +- + *Each stage assumes the associated GFR level has been in effect for at least three months. Stages 1 to 5, with or without kidney disease, indicate chronic kidney disease. Notes: Determination of stages one and two (with eGFR >59mL/min/1.73 m2) requires estimation of kidney damage for at least three months as defined by structural or functional abnormalities of the kidney, manifested by either: Pathological abnormalities or Markers of kidney damage (including abnormalities in the composition of the blood or urine or abnormalities in imaging tests). Performing Organization Address City/State/Zipcode Phone Number [facility] CLIA: [id number] [place] [address] CBC WITH DIFF (03/26/2020 12:53 PM CDT) WBC 4.03 (L) 4.20 - 10.70 [facility] 10*3/L [facility] RBC 4.38 4.26 - 5.52 [facility] 10*6/L [facility] HGB 13.6 12.2 - 16.4 [facility] g/dL [facility] HCT 40.0 38.4 - 49.3 % [facility] MCV 91.3 81.7 - 95.6 [facility] LABORATORY MCH 31.1 26.1 - 32.7 [facility] pg [facility] MCHC 34.0 31.2 - 35.0 [facility] g/dL [facility] RDW-SD 47.4 38.5 - 51.6 [facility] LABORATORY RDW-CV 13.9 12.1 - 15.4 % [facility] PLT 29 (LL) 150 - 328 [facility] 10*3/L [facility] MPV 12.1 9.8 - 13.0 fL [facility] IPF % 5.3Comment: Platelet 1.2 - 10.7 % [facility] count measured by HOSPITAL fluorescence method. LABORATORY NRBC/100 WBC 0.0 0.0 - 10.0 [facility] /100 WBCs [facility] NRBC x10^3 <0.01 10*3/L [facility] GRAN MAT (NEUT) % 64.1 % [facility] IMM GRAN % 0.20 % [facility] LYMPH % 16.4 % [facility] MONO % 16.6 % [facility] EOS % 1.7 % [facility] BASO % 1.0 % [facility] GRAN MAT 2.58 1.99 - 6.95 [facility] x10^3(ANC) 10*3/uL [facility] IMM GRAN x10^3 <0.03 0.00 - 0.06 [facility] 10*3/uL [facility] LYMPH x10^3 0.66 (L) 1.09 - 3.23 [facility] 10*3/uL [facility] MONO x10^3 0.67 0.36 - 1.02 [facility] 10*3/uL [facility] EOS x10^3 0.07 0.06 - 0.53 [facility] 10*3/uL [facility] BASO x10^3 0.04 0.01 - 0.09 [facility] 10*3/uL [facility] Specimen Blood - VENOUS Performing Organization Address City/State/Zipcode Phone Number [facility] CLIA: [id number] [place] [address] Lactic Acid Whole Blood (03/26/2020 12:52 PM CDT) [facility] nature LACTIC ACID 2.52 mmol/L [facility] Specimen Blood - VENOUS Performing Organization Address City/[facility]/Zipcode Phone Number [facility] CLIA: [id number] [place] [address] documented in this encounter Visit Diagnoses Diagnosis SOB (shortness of breath) - Primary Shortness of breath Suspected Covid-19 Virus Infection Morbid obesity with body mass index of 5 0 or higher documented in this encounter Administered Medications Medication Order MAR Action Action Date Dose Rate Site ascorbic acid (vitamin C) Given 03/27/2020 7:58 AM CDT 1,000 mg (VITAMIN C) tablet 1,000 mg 1,000 mg, Oral, DAILY, First dose on Mon03/27/20 at 0900, Until Discontinued, Routine benzonatate (TESSALON PERLES) capsule 10 0 mg Given 03/27/2020 9:31 AM CDT 100 mg 100 mg, Oral, TIDPRN, Starting Mon03/27/20 at 0032, Until Discontinued, Routine, Cough Given 03/27/2020 1:04 AM CDT 100 mg foLIC acid (FOLATE) tablet 1 mg Given 03/27/2020 7:58 AM CDT 1 mg 1 mg, Oral, DAILY, First dose on Mon03/26/20 at 1430, Until Discontinued, Routine hydralAZINE (APRESOLINE) injection 10 mg 10 mg, Intravenous, Q6HPRN, Starting Mon03/26/20 at 17 57, Until Discontinued, Routine, Hypertension, SBP>180 DBP> 100 lactulose (CEPHULAC) solution 45 mL Given 03/27/2020 7:59 AM CDT 30 mL 45 mL, Oral, TID, First dose on Mon03/26/20 at 2000, Until Discontinued, Routine Given 03/26/2020 9:08 PM CDT 30 mL oxazepam (SERAX) capsule 15 mg Given 03/27/2020 12:47 PM CDT 15 mg 15 mg, Oral, Q6H, 4 doses, First dose on Mon03/26/20 at 1800, Last dose on Mon03/27/20 at 1200, Routine Given 03/27/2020 7:04 AM CDT 15 mg Given 03/27/2020 1:05 AM CDT 15 mg oxazepam (SERAX) capsule 15 mg 15 mg, Oral, Q8H, 3 doses, First dose on Mon03/27/20 a t 1800, Last dose on Mon03/28/20 at 0600, Routine oxazepam (SERAX) capsule 15 mg 15 mg, Oral, Q12H, 2 doses, First dose on Mon03/28/20 at 1400, Last dose on Mon03/28/20 at 2000, Routine oxazepam (SERAX) capsule 15 mg Given 03/26/2020 5:50 PM CDT 15 mg 15 mg, Oral, Q4HPRN, Starting Mon03/26/20 at 1600, Until Discontinued, Routine, Only while awake for DBP equal to or greater than 100, HR equal to or greater than 100. propranoloL (INDERAL) tablet 20 mg Given 03/27/2020 7:58 AM CDT 20 mg 20 mg, Oral, BID, First dose on Mon03/26/20 at 2000, Until Discontinued, Routine Given 03/26/2020 9:08 PM CDT 20 mg spironolactone (ALDACTONE) tablet 50 mg Given 03/27/2020 7:58 AM CDT 50 mg 50 mg, Oral, DAILY, First dose on Mon03/27/20 at 0900, Until Discontinued, Routine thiamine (VITAMIN B1) tablet 100 mg Given 03/27/2020 12:47 PM CDT 100 mg 100 mg, Oral, DAILY, First dose (after last modification) on Mon03/26/20 at 1815, Until Discontinued, Routine Given 03/26/2020 9:08 PM CDT 100 mg traZODone (DESYREL) tablet 200 mg Given 03/26/2020 9:50 PM CDT 200 mg 200 mg, Oral, QHS, First dose on Mon03/26/20 at 2100, Until Discontinued zinc sulfate (ORAZINC) capsule 220 mg Given 03/27/2020 7:58 AM CDT 220 mg 220 mg, Oral, DAILY, First dose on Mon03/27/20 at 0900, Until Discontinued, Routine Medication Order MAR Action Action Date Dose Rate Site benzonatate (LINNSALON KAYLIE) Given 03/26/2020 1:36 PM CDT 200 mg capsule 200 mg 200 mg, Oral, ONCE, 1 dose, [facility] 03/26/20 at 1430, Routine D5W 0.9% NaCl (NS) IV infusion New Bag 03/26/2020 9:43 PM CDT 1,000 mL 100 mL/hr 1,000 mL at 100 mL/hr, 1,000 mL, IV Infusion, CONTINUOUS, Starting Mon03/26/20 at 1915, Until Mon03/27/20 at 0958, Routine foLIC acid (FOLATE) tablet 1 mg Given 03/26/2020 1:36 PM CDT 1 mg 1 mg, Oral, ONCE, 1 dose, [facility] 03/26/20 at 1430, KELLI iohexol (OMNIPAQUE 350 BULK-100 mL) Given 03/26/2020 3:01 PM CD T 100 mL injection 100 mL 100 mL, Intravenous, ONCE, 1 dose, [facility] 03/26/20 at 1515, Routine magnesium sulfate 4 mEq/mL (50 %) injection 8 Given 2:09 PM CDT 8 mEq mEq 8 mEq (1 g), IV Piggyback, ONCE, 1 dose, [facility] 03/26/20 at 1445, STAT magnesium sulfate in water 2 gram/50 mL (4 %) New Bag 9:43 PM CDT 2 g infusion 2 g 2 g, IV Piggyback, ONCE, 1 dose, [facility] 03/26/20 at 1915, Routine NaCl 0.9% (NS) bolus infusion 500 New Bag 03/26/2020 1:34 PM CDT 500 mL 999 mL/hr mL at 999 mL/hr, 500 mL, IV Infusion, ONCE, 1 dose, [facility] 03/26/20 at 1430, STAT ondansetron (ZOFRAN (PF)) injection 4 mg Given 03/26/2020 12:59 PM CDT 4 mg 4 mg, Slow IV Push, ONCE, 1 dose, [facility] 03/26/20 at 1330, KELLI thiamine (VITAMIN B1) tablet 100 mg Given 03/26/2020 1:36 PM CDT 100 mg 100 mg, Oral, DAILY, First dose on Mon03/27/20 at 0900, Until Discontinued, Routine documented in this encounter Additional Health Concerns Infection Onset Date Last Indicated Resolved Time COVID-19 Rule Out 03/26/2020 03/26/2020 03/26/2020 1: 27 PM CDT COVID-19 Rule Out 03/26/2020 03/26/2020 03/27/2020 1: 23 PM CDT documented as of this encounter Insurance Payer Benefit Plan / Subscriber ID Effective Phone Address T ype Group Dates MEDICAID MEDICAID SSI PENDING 2020-Pres [address] [place] [address] documented as of this encounter
--- OUTSIDE RECORDS SUMMARY | 2020-03-28 21:15 | XMS REPORT | Summary of Care ---
:1985 Author Organization [facility] Address [address] [place] [address] Care Team Providers Name Role Phone DO Piyush Primary Care Provider Reason for Visit Reason Comments Refill Request Encounter Details Date Type Department Care Team Description 12/30/2019 Refill [facility] Internal Karlo Fr Mele schuster DO [facility] [address] [facility] [place] [address] [address], [place] [address] [address] [place] [address] [phone] Allergies Active Allergy Reactions Severity Noted Date Comments Aspirin Anaphylaxis 06/04/2014 Vancomycin Anaphylaxis 06/04/2014 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 of liver with ascites furosemide 80 mg Take one 30 tablet 2 06/17/2019 Ac tive tabletIndications: tablet twice Alcoholic cirrhosis daily for 5 of liver with days followed ascites by one tablet daily rifAXIMin (XIFAXAN) Take 1 tablet 60 tablet 5 06/18/2019 Active 550 mg by mouth 2 tabletIndications: (two) times Hepatic daily. encephalopathy SPIRONOLACTONE 100 TAKE TWO (2) 60 tablet 1 12/30/2019 Active mg TABLET(S) BY tabletIndications: MOUTH ONCE A Alcoholic cirrhosis DAY. of liver with ascites spironolactone 100 Take 2 tablets 60 tablet 2 08/21/201912/29 Discontinued mg by mouth 0 tabletIndications: daily. Alcoholic cirrhosis of liver with ascites documented as of this encounter (statuses as of 12/30/2019) Active Problems Problem Noted Date Alcoholic cirrhosis of liver with ascites 06/18/2019 Morbid obesity with body mass index of 50 or higher GI bleed 04/05/2019 Penile cellulitis 06/04/2014 documented as of this encounter (statuses as of 12/30/2019) Immunizations Name Administration Dates Next Due Influenza Virus Vaccine Quad .5 mL IM 6+ MO 04/18/2019 Pneumococcal Polysaccharide, PPSV23 (PNEUMOVAX) 04/18/2019 documented as of this encounter Social History Tobacco Use Types Packs/Day Years Used Date Former Smoker 1 10 Smokeless Tobacco: Never Used Alcohol Use Drinks/Week oz/Week Comments Yes 60 Cans of beer 60.0 Sex Assigned at Date Recorded Not on file Job Start Date Occupation Industry Not on file Not on file Not on file Travel History Travel Start Travel End No recent travel history available. documented as of this encounter Last Filed Vital Signs Not on filedocumented in this encounter Plan of Treatment Health Maintenance Due Date Last Done Comments VARICELLA VACCINES (1 of 2 - 2-dose 1985 childhood series) DTaP,Tdap,and Td Vaccines (1 - Tdap) 12/19/1995 Depression Screening 07/25/2020 07/25/2019, 04/14/2019 INFLUENZA VACCINE Completed 04/18/2019 PNEUMOCOCCAL 0-64 YEARS COMBINED SERIES Completed 04/18/20 19 documented as of this encounter Results Not on filedocumented in this encounter Visit Diagnoses Diagnosis Alcoholic cirrhosis of liver with ascite s Alcoholic cirrhosis of liver documented in this encounter
--- OUTSIDE RECORDS SUMMARY | 2020-03-28 21:15 | XMS REPORT | Continuity of Care Document ---
:1985 Author Organization [facility] t Address [address] [place] [address] Care Team Providers Name Role Phone CindiDina Mccall Attending Clinician Karishma SALES Attending Clinician Karlo Sky DO Attending Clinician Dionisio SALES M Attending Clinician DO Attending Clinician Jie SALES S Attending Clinician Piyush DO Attending Clinician Doctor Unassigned, Name Attending Clinician Unavailable Karishma SALES Admitting Clinician Payers Payer Name Policy Type Policy Number Effective Date Expiration Date S ource Problems This patient has no known problems. Allergies, Adverse Reactions, Alerts Allergy Allergy Status Severity Reaction(s) Onset Inactive Treating Comm ents Source Name Type Date Date Clinician lorazepa DA Active U [facility] 09-14 [place] 00:00: [address] aspirin DA Active U 2013-07 [facility] 08-03 [place] 00:00: [address] vancomyc DA Active SV 2013-07 [facility] in 08-03 [place] 00:00: [address] Medications This patient has no known medications. Procedures This patient has no known procedures. Encounters Start End Encounter Admission Attending Care Care Encounter Source Date/Time Date/Time Type Type Clinicians Facility Department ID 2020-03-26 2020-03-27 Emergency Laci Puente [facility] 1.2.840. 114 [id number] 11:22:00 15:26:00 [facility] [id number] [place] [id number] [place] [id number] 2019-12-30 2019-12-30 Refill Karlo [facility] [id number] 00:00:00 00:00:00 Asya, PRIMARY [id number] [facility] [id number] [facility] [id number] 2019-11-11 2019-11-11 [facility] [id number] 11:40:01 23:59:00 Encounter Rosales CLOUD [id number] [facility] [id number] [place] [id number] 2019-11-09 2019-11-11 Emergency Fly Patino [facility] 1.2.840. [id number] 20:11:26 13:17:00 Laci Puente [id number] Sammiejuan Fabianaluna Gipson [place] [id number] [place] [id number] 2019-08-20 2019-08-20 Refill Piyush [facility] [id number] 00:00:00 00:00:00 Erika-Rehma PRIMARY [id number] n CARE 4.2.7.2.686 [facility] [id number] 2019-07-25 2019-07-25 Office Piyush, [facility] [id number] 14:27:02 15:49:13 Visit Erika-Rehma PRIMARY [id number] n CARE [id number] [facility] [id number] 2019-06-04 2019-06-04 Orders Doctor COURTNEY [id number] 00:00:00 00:00:00 Only Unassigned, DAVID [id number] [facility] 4.2.7.2.686 [id number] Results Test Description Test Time Test Comments Results Result Comments Source RPR Qualitative 2019-11-12 09:44:28 Test Item Value Reference Range Interpretation Comme nts RPR Qual (test code = RPR Qual) Non-Reactive Non-Reactive Reactive Control (test code = Reactive Control) Reactive Weak Reactive Control (test code = Weak Reactive Weak Reactive Control) Non-Reactive Control (test code = Non-Reactive Non-Reactive Control) Lot # (test code = Lot #) [id number] N Expiration Dt (test code = Expiration Dt) 07-09-2020 N Thyroid Stimulating [id number] 08:27:57 Test Item Value Reference Range Interpretation Comments TSH (test code = TSH) 1.970 mIU/mL 0.270-4.200 Lipid [id number] 08:21:36 Test Item Value Reference Range Interpretation Comments Cholesterol Total 132 mg/dL 0-200 RISK OF HE ART (test code = DISEASEPublishe d by Cholesterol Total) [place] [employer] [place] Optimal Borderl ine Increased RiskC HOL <200 200-239 >2 40TRIG <150 150-199 >2 00HDL Male >60 <40H DL Female >60 <5 0LDL <100 130-159 >1 60LDL Near optimal is 100-129 Triglycerides (test 46 mg/dL 9-200 code = Triglycerides) HDL (test code = HDL) 49 mg/dL 40-60 LDL (test code = LDL) 74 mg/dL 0-130 The eq uation being used in this calcula tion is LDL = (Chol - H DL) - (Trig / 5) VLDL (test code = 9 mg/dL 5-40 The equati on being used VLDL) in this calcula tion is VLDL = Trig / 5 Chol/HDL (test code = 2.7 ratio 0.0-5.0 Chol/HDL) LDL/HDL Ratio (test 2 N The equa tion being used code = LDL/HDL Ratio) in thi s calculation is LDL/HDL Ratio=L DL Calc/HDL Chol Hemoglobin [id number] 08:14:15 Test Item Value Reference Range Interpretation Comments Hemoglobin A1c (test code 5.7 % 4.8-5.9 No n Diabetic = Hemoglobin A1c) 4.8-5.9%Di abetic <7.0% TROPONIN I [id number] 09:35:00 Test Item Value Reference Range Interpretation Comments TROPONIN I RAPID 0.01 NG/ML 0.00-0.08 N 0.00 - 0.08 (test code = Normal0.09 - 0. 40 TROPIRAP) Indeterminate f or AMI 0.41 and above Compatible with AMI CBC W/AUTO [id number] 20:37:00 Test Item Value Reference Range Interpretation Comments WHITE BLOOD CELL (test code = 4.9 K/mm3 4.8-10.8 N WBC) RED BLOOD CELL (test code = RBC) 4.84 M/mm3 4.2-5.4 N HEMOGLOBIN (test code = HGB) 14.9 gm/DL 13.5-17.5 N HEMATOCRIT (test code = HCT) 42.9 % 37.1-51.5 N MEAN CELL VOLUME (test code = 88.6 fL 81-99 N MCV) MEAN CELL HGB (test code = MCH) 30.8 pg 27-31 N MEAN CELL HGB CONCETRATION (test 34.7 gm/dL 33-37 N code = MCHC) RED CELL DISTRIBUTION WIDTH (test 14.0 % 11.5-14.5 N code = RDW) PLATELET COUNT (test code = PLT) 73 X10(3) 130-400 L MEAN PLATELET VOLUME (test code = 10.9 fL 9.4-12.4 N MPV) NEUTROPHIL % (test code = NT%) 53.4 % 51.5-79.7 N IMMATURE GRANULOCYTE % (test code 0.400 % 0.108-0.322 H = IG%) LYMPHOCYTE % (test code = LY%) 28.4 % 14-40 N MONOCYTE % (test code = MO%) 14.6 % 4.0-10.2 H EOSINOPHIL % (test code = EO%) 2.4 % 0-4.1 N BASOPHIL % (test code = BA%) 0.8 % 0.1-0.7 H NUCLEATED RBC % (test code = 0 % 0-0 N NRBC%) NEUTROPHIL # (test code = NT#) 2.6 K/mm3 2.5-8.6 N IMMATURE GRANULOCYTE # (test code 0.020 K/mm3 0.0052-0.0224 N = IG#) LYMPHOCYTE # (test code = LY#) 1.4 K/mm3 1.1-3.6 N MONOCYTE # (test code = MO#) 0.7 K/mm3 0.3-0.9 N EOSINOPHIL # (test code = EO#) 0.12 # 0.0-0.4 N BASOPHIL # (test code = BA#) 0.04 K/mm3 0.0-0.2 N NUCLEATED RBC # (test code = 0.00 K/mm3 0.00-0.20 N NRBC#) PLATELET [id number] 20:37:00 Test Item Value Reference Range Interpretation Comments PLATELET ESTIMATE (test code DECREASED ADEQ A PLT.EST. 98,750 = PLTEST) PLATELET [id number] 20:37:00 Test Item Value Reference Range Interpretation Comments PLATELET MORPHOLOGY (test VARIABLE PLT SIZE NORMAL A code = PLTMORPH) HEPATIC FUNCTION [id number] 20:14:00 Test Item Value Reference Range Interpretation Comments TOTAL PROTEIN (test 7.6 g/dL 6.4-8.2 N code = PROT) ALBUMIN (test code = 2.9 g/dL 3.4-5.0 L ALB) GLOBULIN (test code = 4.7 gm/dL 2.3-3.5 H GLOB) ALBUMIN/GLOBULIN 0.6 1.5-2.2 L RATIO (test code = A/G) BILIRUBIN TOTAL (test 3.2 mg/dL 0.0-1.1 H code = BILT) BILIRUBIN DIRECT 1.0 mg/dL 0.05-0.3 H (test code = BILD) BILIRUBIN INDIRECT 2.2 mg/dL 0.0-0.6 H (test code = BILIND) SGOT/AST (test code = 75 U/L 15-37 H Report ing units: AST) International U nits/L SGPT/ALT (test code = 40 U/L 10-30 H Report ing units: ALT) International U nits/L ALKALINE PHOSPHATASE 82 U/L 45-117 N TOTAL (test code = ALKP) CBC W/AUTO [id number] 19:03:00 Test Item Value Reference Range Interpretation Comments WHITE BLOOD CELL (test code = 4.9 K/mm3 4.8-10.8 N WBC) RED BLOOD CELL (test code = RBC) 4.84 M/mm3 4.2-5.4 N HEMOGLOBIN (test code = HGB) 14.9 gm/DL 13.5-17.5 N HEMATOCRIT (test code = HCT) 42.9 % 37.1-51.5 N MEAN CELL VOLUME (test code = 88.6 fL 81-99 N MCV) MEAN CELL HGB (test code = MCH) 30.8 pg 27-31 N MEAN CELL HGB CONCETRATION (test 34.7 gm/dL 33-37 N code = MCHC) RED CELL DISTRIBUTION WIDTH (test 14.0 % 11.5-14.5 N code = RDW) PLATELET COUNT (test code = PLT) 73 X10(3) 130-400 L MEAN PLATELET VOLUME (test code = 10.9 fL 9.4-12.4 N MPV) NEUTROPHIL % (test code = NT%) 53.4 % 51.5-79.7 N IMMATURE GRANULOCYTE % (test code 0.400 % 0.108-0.322 H = IG%) LYMPHOCYTE % (test code = LY%) 28.4 % 14-40 N MONOCYTE % (test code = MO%) 14.6 % 4.0-10.2 H EOSINOPHIL % (test code = EO%) 2.4 % 0-4.1 N BASOPHIL % (test code = BA%) 0.8 % 0.1-0.7 H NUCLEATED RBC % (test code = 0 % 0-0 N NRBC%) NEUTROPHIL # (test code = NT#) 2.6 K/mm3 2.5-8.6 N IMMATURE GRANULOCYTE # (test code 0.020 K/mm3 0.0052-0.0224 N = IG#) LYMPHOCYTE # (test code = LY#) 1.4 K/mm3 1.1-3.6 N MONOCYTE # (test code = MO#) 0.7 K/mm3 0.3-0.9 N EOSINOPHIL # (test code = EO#) 0.12 # 0.0-0.4 N BASOPHIL # (test code = BA#) 0.04 K/mm3 0.0-0.2 N NUCLEATED RBC # (test code = 0.00 K/mm3 0.00-0.20 N NRBC#) CBC W/AUTO [id number] 19:03:00 Test Item Value Reference Range Interpretation Comments WHITE BLOOD CELL (test code = 4.9 K/mm3 4.8-10.8 N WBC) RED BLOOD CELL (test code = RBC) 4.84 M/mm3 4.2-5.4 N HEMOGLOBIN (test code = HGB) 14.9 gm/DL 13.5-17.5 N HEMATOCRIT (test code = HCT) 42.9 % 37.1-51.5 N MEAN CELL VOLUME (test code = 88.6 fL 81-99 N MCV) MEAN CELL HGB (test code = MCH) 30.8 pg 27-31 N MEAN CELL HGB CONCETRATION (test 34.7 gm/dL 33-37 N code = MCHC) RED CELL DISTRIBUTION WIDTH (test 14.0 % 11.5-14.5 N code = RDW) PLATELET COUNT (test code = PLT) 73 X10(3) 130-400 L MEAN PLATELET VOLUME (test code = 10.9 fL 9.4-12.4 N MPV) NEUTROPHIL % (test code = NT%) 53.4 % 51.5-79.7 N IMMATURE GRANULOCYTE % (test code 0.400 % 0.108-0.322 H = IG%) LYMPHOCYTE % (test code = LY%) 28.4 % 14-40 N MONOCYTE % (test code = MO%) 14.6 % 4.0-10.2 H EOSINOPHIL % (test code = EO%) 2.4 % 0-4.1 N BASOPHIL % (test code = BA%) 0.8 % 0.1-0.7 H NUCLEATED RBC % (test code = 0 % 0-0 N NRBC%) NEUTROPHIL # (test code = NT#) 2.6 K/mm3 2.5-8.6 N IMMATURE GRANULOCYTE # (test code 0.020 K/mm3 0.0052-0.0224 N = IG#) LYMPHOCYTE # (test code = LY#) 1.4 K/mm3 1.1-3.6 N MONOCYTE # (test code = MO#) 0.7 K/mm3 0.3-0.9 N EOSINOPHIL # (test code = EO#) 0.12 # 0.0-0.4 N BASOPHIL # (test code = BA#) 0.04 K/mm3 0.0-0.2 N NUCLEATED RBC # (test code = 0.00 K/mm3 0.00-0.20 N NRBC#) CHEMISTRY 8 [id number] 18:55:00 Test Item Value Reference Range Interpretation Comments IONIZED CALCIUM (test code = 1.12 mmol/L 1.13-1.32 L CAIABG) ISTAT-TCO2 VENOUS (test code = 22 MMOL/L 24-30 L TCO2VP) ISTAT-HEMOGLOBIN (test code = 15.3 G/DL 13.5-17.5 N HBP) ISTAT-HEMATOCRIT (test code = 45 % 44.0-56.0 N HCTP) ISTAT-SODIUM (test code = NAP) 137 MMOL/L 136-145 N ISTAT-POTASSIUM (test code = KP) 4.0 MMOL/L 3.5-5.1 N ISTAT-CHLORIDE (test code = CLP) 102 MMOL/L 98-107 N ISTAT GLUCOSE (test code = GLUP) 95 MG/DL 65-99 N ISTAT-BUN (test code = BUNP) 6 MG/DL 7-18 L BEDSIDE CREATININE (test code = 0.5 MG/DL 0.6-1.0 L CREATBED) - XR CHEST 1 [id number] 18:27:00 FAX: Isha Rico, Camps: ER St: REG Name: [facility] : 1985 Age/S: 32/M [address] Unit #: [id number] Loc: [place], [place] [address] Phys: Isha Rico MD Acct: [id number] Dis Date: Status: REG ER PHONE #: [phone] Exam Date: 09/14/2018 181 FAX #: [phone] Reason: chest pain EXAMS: CPT CODE: [id number] XR CHEST 1 V [id number] Examination: Chest 1 view Location code: S17 Comparison: None Discussion: Clinical history is remarkable for chest pain. Cardiac silhouette is normal in size. Coarsened interstitial changes are present, no consolidation or effusion identified. Osseous structures are unremarkable. Impression: Coarsened interstitial change, no acute finding. at 1827 Reported and signed by: NAVIN VINES M.D. CC: Isha Rico MD Technologist: DAVID OSMAN RT(R) (ARRT) Transcribed Date/Time/By: 09/14/2018 (1826) :[id number] Orig Print D/T: S: 09/14/2018 (183) Automated exposure control, iterative reconstruction technique, and/oradjustment of mA and/or kV according to patient's size was utilizedfor optimum radiation dose reduction. PAGE 1 Signed Report
[2020-03-28 22:15] LABS: Absolute Lymphocytes (CBC) 1.1 K/uL (0.7-4.9)
[2020-03-28 22:18] LABS: Protime INR 1.34
[2020-03-28 22:21] LABS: Basophils % 1.1 % (0-1.3); Hematocrit 41.1 % (39.6-49.0); Lymphocytes % 18.8 % (15.3-44.8); MPV 9.2 fL (7.6-11.3); RBC Red Blood Cell Count 4.41 M/uL (4.33-5.43)
[2020-03-28 22:42] LABS: Blood Morphology Comment NOT SEEN (NOT SEEN); Platelet Estimate DECR; White Blood Cell Scan OK (OK)
[2020-03-28 22:48] LABS: ALT/SGPT 45 U/L (12-78); AST/SGOT 86 U/L (15-37); Albumin 2.8 g/dL (3.4-5.0); Alkaline Phosphatase 129 U/L (45-117); BUN Blood Urea Nitrogen 14 mg/dL (7-18); Bicarbonate 26 mmol/L (21-32); Glucose Level 116 mg/dL (74-106); Potassium 3.6 mmol/L (3.5-5.1); Protein, Total 7.4 g/dL (6.4-8.2); Sodium Level 141 mmol/L (136-145)
[2020-03-29 01:43] LABS: Barbiturates NEGATIVE (NEGATIVE); Benzodiazepines POSITIVE (NEGATIVE); Cocaine NEGATIVE (NEGATIVE); METHAMPHETAM NEGATIVE (NEGATIVE); Methadone NEGATIVE (NEGATIVE); Opiates NEGATIVE (NEGATIVE); Phencyclidine NEGATIVE (NEGATIVE); THC Cannibis POSITIVE (NEGATIVE)
[2020-03-29] MEDS ORDERED: LORazepam 2 MG/ML VIAL ONE (02:45)
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
--- NOTE | 2020-03-29 10:53 | RAD REPORT ---
EXAM DESCRIPTION: CT - Head Brain Wo Cont - 03/29/2020 4:54 am CLINICAL HISTORY: 34 years Male AMS TECHNIQUE: Contiguous axial CT images obtained through the brain without IV contrast. Coronal and sa gittal reformats also provided. This CT exam was performed according to our departmental dose-optimization program, which includes on e or more of the following dose reduction techniques: automated exposure control, adjustment of the m A and/or kV according to patient size, and/or use of iterative reconstruction technique. COMPARISON: No prior exams provided for comparison. FINDINGS: There is no intracranial hemorrhage, extra-axial collection, or acute transcortical infarc tion. The ventricles are normal in size and contour without mass-effect or midline shift. Osseous structures are normal. The paranasal sinuses and mastoid air cells are clear. IMPRESSION: No acute intracranial abnormalities. Electronically signed by: Simin Cool MD 03/29/2020 12:37 AM CDT Due to temporary technical issues with the PACS/Fluency reporting system, reports are being signed by the in house radiologist without review as a courtesy to ensure prompt reporting. The interpreting r adiologist is fully responsible for the content of the report.
[2020-03-29] MEDS ORDERED: LORAZEPAM 1 MG TABLET ONE (11:09)
[2020-03-29 11:31] VITALS: TEMP 98.4
[2020-03-29 11:32] VITALS: BP 132/65; O2SAT 96
== END 2020-03-29 11:06 ==
LOC: ER 21:11
DX: F33.9 Major depressive disorder, recurrent, unspecified (principal); Z20.828 Contact with and (suspected) exposure to other viral communicable diseases; F29 Unspecified psychosis not due to a substance or known physiological condition; F17.210 Nicotine dependence, cigarettes, uncomplicated; I10 Essential (primary) hypertension; F41.9 Anxiety disorder, unspecified; Z88.1 Allergy status to other antibiotic agents; Z88.6 Allergy status to analgesic agent
CPT/HCPCS: 36415; 70450; 80048; 80076; 80307; 80320; 80329; 82140; 82947; 84484; 85025; 85610; 85730; 93005; 96372; 99285; U0003

== ENCOUNTER 2020-09-17 16:08 | Emergency (ER) | payer OTHER, SELFPAY ==
--- OUTSIDE RECORDS SUMMARY | 2020-09-17 16:12 | XMS REPORT | Continuity of Care Document ---
:1985 Author Organization [facility] t Address [address] [place] [address] Care Team Providers Name Role Phone Piyush Attending Clinician GREG Attending Clinician Unavailable Dina Villa Attending Clinician Karishma SALES Attending Clinician Ashely Almanzar MD Attending Clinician Awilda Mendoza Attending Clinician Unavailable COVERDALE, H Attending Clinician Unavailable Karlo Sky DO Attending Clinician Mani SALES M Attending Clinician Ruma Nichole MD Attending Clinician DO Attending Clinician Jie SALES S Attending Clinician Doctor Unassigned, Name Attending Clinician Unavailable GREG Admitting Clinician Unavailable BRADLEY Admitting Clinician Unavailable Karishma SALES Admitting Clinician Payers Payer Name Policy Type Policy Number Effective Date Expiration Date Brandan warren [place] [id number] 2020 [place] MEDICAIDTP01 00:00:00 [facility] THACKER [id number] [phone] [place] [address] 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, disorder, without without psychotic psychotic features features Alcohol Alcohol Disease Active [place] use use Health disorder, disorder, severe, severe, dependence dependence Allergies, Adverse Reactions, Alerts Allergy Allergy Status Severity Reaction(s) Onset Inactive Treating Comm ents Source Name Type Date Date Clinician Aspirin Propensi Active Anaphylaxis Haywood rris ty to 6-17 Health adverse 00:00: reaction 00 s to drug Codeine Propensi Active Rash Maciel ty to 17 Health adverse 00:00: reaction 00 s to drug 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" Health adverse 00:00: reaction 00 s to drug lorazepa DA Active U [facility] 3-08 [place] 00:00: [facility]ly [facility] aspirin DA Active U 2013-07 [facility] 08-03 [place] 00:00: Formerly [facility] vancomyc DA Active SV 2013-07 [facility] in 08-03 [place] 00:00: [address] Social History Social Habit Start Date Stop Date Quantity Comments Source Sex Assigned At Sami ris Health Medications Ordered Filled Start Stop Current Ordering Indication Dosage Frequency Signature Comments Components Source Medication Medication Date Date Medication? Clinician (SIG) Name Name sertraline Yes Suicidal 50mg QD Take 1 H arris (ZOLOFT) 50 6-26 behavior tablet by Health mg tablet 00:00: with mouth 00 attempted daily. self-injury ARIPiprazol 2020- No Suicidal 5mg QD Take 1 Maciel e (ABILIFY) 6-26 07-26 behavior tablet by [facility] 5 mg tablet 00:00: 23:59 with mouth 00 :00 attempted daily for self-injury 30 days. hydrOXYzine Suicidal 50mg Take 1 Maciel (ATARAX) 50 01-02 behavior tablet by Health mg tablet 00:00: 23:59 with mouth at 00 :00 attempted bedtime self-injury nightly for 30 days. traZODone Suicidal 200mg Take 2 Maciel (DESYREL) 01-02 behavior tablets by [facility] 100 mg 00:00: 23:59 with mouth at tablet 00 :00 attempted bedtime self-injury nightly for 30 days. Vital Signs Vital Name Observation Time Observation Value Comments Source Systolic blood pressure 2020-01-03 05:26:00 126 mm[Hg] [facility] Diastolic blood pressure 2020-01-03 05:26:00 67 mm[Hg] [facility] Heart rate 2020-01-03 05:26:00 84 /min [facility] Body temperature 2020-01-03 05:26:00 36.61 [facility] Respiratory rate 2020-01-03 05:26:00 18 /min [facility] Body height 2019-12-26 23:45:00 182.9 cm [facility] Body weight 2019-12-26 23:45:00 143.45 kg ABG 144 [facility] BMI 2019-12-26 23:45:00 42.89 kg/m2 [facility] Oxygen saturation in 2019-12-26 23:23:00 96 /min [facility] Arterial blood by Pulse oximetry Procedures Procedure Date / Time Performed Performing Clinician [facility] e IP CONSULT WITH INSIGHT 2019-12-31 11:11:10 [facility] EKG PROC 12 LEAD EKG; 2019-12-29 20:30:33 Angelo Monae [facility] TRACING ONLY HEMOGLOBIN A1C 2019-12-27 06:21:00 Angelo Monae [facility] LIPID PROFILE 2019-12-27 06:21:00 Angelo Monae [facility] THYROID STIMULATING 2019-12-27 06:21:00 Angelo Monae [facility] HORMONE (TSH) VITAMIN B12 2019-12-27 06:21:00 Angelo Monae [facility] COMPREHENSIVE METABOLIC 2019-12-25 22:47:00 Sheila Torres [facility] PANEL A CREATININE POC 2019-12-25 20:09:00 DinJonathan dangy Ruma Raheem [facility] h BMP POC 2019-12-25 20:09:00 DinZach dang Raheem [facility] h CBC/DIFF 2019-12-25 20:01:00 Alyssa Archuleta [facility] CBC 2019-12-25 20:01:00 Alyssa Archuleta [facility] DIFFERENTIAL, MANUAL (NO 2019-12-25 20:01:00 Alyssa [facility]uleta [facility] MORPHOLOGY)-WAM CONSULT CLINICAL CASE 2019-12-25 19:46:24 Alyssa Archlueta is Health MANAGEMENT (RN/SW) Plan of Care Planned Activity Planned Date Details Comments Source Future Scheduled Test 2020-04-09 00:00:00 IMM Influenza [facility] Seasonal Apr to September (>/= 19 yrs) [code = IMM Influenza Seasonal Apr to September (>/= 19 yrs)] Encounters Start End Encounter Admission Attending Care Care Encounter Source Date/Time Date/Time Type Type Clinicians Facility Department ID 2020-05-13 2020-05-13 Refill Piyush, [facility] [id number] 00:00:00 00:00:00 Erika-Rehma PRIMARY [id number] n CARE 4.2.7.2.686 PAVILLION [id number] 2020-04-29 2020-04-29 Telephone Piyush, [facility] [id number] 00:00:00 00:00:00 Erika-Rehma PRIMARY [id number] n CARE 4.2.7.2.686 PAVILLION [id number] 2020-03-30 2020-04-02 Inpatient [facility] 012 [id number] [place] 00:00:00 00:00:00 NAOMI [address] 2020-03-29 2020-03-30 Inpatient [facility] 012 [id number] [place] 00:00:00 00:00:00 NAOMI [address] 2020-03-26 2020-03-27 Emergency Laci Puente [facility] 1.2.840. 114 [id number] 11:22:00 15:26:00 PlacidopriceJerryan Bello 350.1.13.10 [place] 4.2.7.2.686 [place] [id number] 2019-12-26 2020-01-03 Inpatient COVERDA, [facility] [id number] [place] 23:34:00 11:08:00 Counts include 234 beds at the [facility] 2019-12-30 2019-12-30 Refill Karlo [facility] 1.2.840.114 [id number] 00:00:00 00:00:00 Asya, PRIMARY 350.1.13.10 Mele CARE 4.2.7.2.686 PAVILLION [id number] 2019-12-25 2019-12-26 Emergency [facility] MED [id number] [place] 18:40:23 23:28:00 [facility] 2019-11-11 2019-11-[address].114 [id number] 11:40:01 23:59:00 Encounter Rosales CLOUD 350.1.13.10 MEDICAL .2.7.2.686 [place] [id number] 2019-11-09 2019-11-11 Emergency Fly Patino [facility] 1.2.840. 114 [id number] 20:11:26 13:17:00 CindiLaci harley 350.1.13.10 Rani Ceron [place] 4.2.7.2.686 [place] [id number] 2019-08-20 2019-08-20 Refill Piyush [facility] 1.2.840.114 [id number] 00:00:00 00:00:00 Erika-Rehma PRIMARY 350.1.13.10 n CARE 4.2.7.2.686 PAVILLION [id number] 2019-07-25 2019-07-25 Office Piyush [facility] 1.2.840.114 [id number] 14:27:02 15:49:13 Visit Erika-Rehma PRIMARY 350.1.13.10 n CARE 4.2.7.2.686 PAVILLION [id number] 2019-06-04 2019-06-04 Orders Doctor COURTNEY 1.2.840.114 [id number] 00:00:00 00:00:00 Only Unassigned, DAVID 350.1.13.10 [facility] 4.2.7.2.686 [id number] Results Test Description Test Time Test Comments Results Result Sourc e Comments 12 LEAD EKG 2019-12-10 12 LEAD EKG FOR CHP Sebastián is 1 Otto He alth 21:36:34 [facility] Test Date: [id number] Name: MELITON HIDALGO Department: PSYUPatient ID: [id number] Room: Gender: Orchid Grower: [id number]: 1985 Requested By: COURTNEY Valverde Number: [id number] Reading MD: Mary Kay Finch MeasurementsIntervals [place] Rate: 67 P: 48PR: 210 QRS: -12QRSD: 112 T: 45QT: 394 QTc: 416 Interpretive StatementsSINUS RHYTHM WITH FIRST DEGREE AV BLOCKMODERATE INTRAVENTRICULAR CONDUCTION DELAYElectronically Signed On 12-29-2019 21:36:30 CDT by Mary Kay Marques Hemoglobin A1C 2019-12-27 08:20:00 Test Item Value Reference Range Interpretation Comme nts Hemoglobin A1c (test code = 4548-4) 6.0 % 4.3-6.1 Estimated Average Glucose (test code = 51434413) 126 mg/dL 70-11 0 H Lab Interpretation (test code = 59861-9) Abnormal [facility] [id number] 08:08:00 Test Item Value Reference Range Interpretation Comments Vitamin B12 (test code 712 pg/mL See comment Veronique l: 180-914 = 91130885) pg/mLIntermitte nt: 145-180 pg/mLDeficient: <=145.0 pg/mL [facility] [id number] 07:58:00 Test Item Value Reference Range Interpretation Comments Cholesterol (test 145.0 mg/dL See_Comment [Automate d code = 2093-3) message] The system which generated this result transmitted reference range : <=200.0. The reference range was not used to interpret this result as normal/abnormal . Triglyceride (test 58 mg/dL <150 code = 05879538) HDL (test code = 43.0 mg/dL See Reference 2085-9) Range Narrative. LDL (test code = 90 mg/dL <100 Optimal: < 100.0 43494-0) mg/dLNear Optim al: 120-129 mg/dLBorderline : 130-159 mg/dLHi gh: 160-189 mg/dLVe ry High: >=190 mg/ dL Patient Fasting? Yes (test code = 42451185) [facility] [Thyroid Stimulating Hormone]2019-12-27 07:57:00 Test Item Value Reference Range Interpretation Comments TSH (test code = 2.48 See_Comment [Automated message] 86804754) The system [employer] generated this result transmitted ref erence range: 0.45 - 5 .33 uIU/mL. The ref erence range was not u sed to interpret this result as normal/abnor mal. Lab Interpretation (test Normal code = 17076-1) [facility]Different[facility], [id number] 10:02:00 Test Item Value Reference Range Interpretation Comments Neutrophil (test code = 08886511) 58.0 % 34-67.9 Lymphs (test code = 37539614) 29.0 % 21.8-50 Monocytes (test code = 38180006) 11.0 % 5.3-12 Eos (test code = 85923564) 0.0 % 0.8-5 L Basos (test code = 12666051) 2.0 % 0.2-1.2 H Neutrophils (Absolute) (test code = 3.56 K/uL 1.78-5.36 42896804) Lymphs (Absolute) (test code = 1.78 K/uL 1.32-3.57 35726507) Monocytes(Absolute) (test code = 0.67 K/uL 0.3-0.82 81265895) Eos (Absolute) (test code = 0.00 K/uL 0.04-0.54 L 35681545) Baso (Absolute) (test code = 0.12 K/uL 0.01-0.08 H 80172173) Cells Counted (test code = 26794060) Lab Interpretation (test code = Abnormal 04697-2) [facility]/[id number] 10:02:00 Test Item Value Reference Range Interpretation Comments WBC (test code = 6690-2) 6.1 K/uL 4.5-12 RBC (test code = 789-8) 4.22 See_Comment L [Au tomated message] The system [employer] generated this result transmit courtney reference range : 4.60 - 6.20 M/u L. The reference r harjit was not used to interpret this result as normal/abnormal . Hemoglobin (test code = 13.0 g/dL 14-18 L 718-7) Hematocrit (test code = 39.9 % 40-54 L 4544-3) MCV (test code = 787-2) 94.5 fL 82-92 H MCH (test code = 785-6) 30.8 pg 27-31 MCHC (test code = 786-4) 32.6 g/dL 32-36 RDW (test code = 53.4 fL 35.1-43.9 H 19870-6) Platelet (test code = 88 K/uL 150-400 L 777-3) Mean Platelet Volume 9.7 fL 9.4-12.4 (test code = 51623-5) Percent NRBC (test code 0.0 % = 40474028) Absolute NRBC (test code 0.00 K/uL = 90977649) Lab Interpretation (test Abnormal code = 46404-0) [facility] [id number] 23:42:00 Test Item Value Reference Range Interpretation Comments Sodium (test code = 139 mmol/L 228-995 6653-2) Potassium (test code = 3.4 mmol/L 3.5-5.1 L 2823-3) Chloride (test code = 104 mmol/L 98-107 2075-0) CO2 (test code = 25 mmol/L 21-31 88266922) Glucose (test code = 132 mg/dL 70-110 H 74737941) Calcium (test code = 7.6 mg/dL 8.6-10.3 L 51471048) Urea Nitrogen (test 10.0 mg/dL 7-25 code = 58873059) Creatinine (test code = 0.7 mg/dL 0.7-1.3 69961921) Alkaline Phosphatase 92 U/L 34-104 (test code = 80328032) ALT (test code = 34 U/L 7-52 62220856) AST (test code = 72 U/L 13-39 H 61832474) Total Protein (test 6.9 g/dL 6-8.3 H code = 2885-2) GFR, Estimated (test >90 See_Comment [Autom ated message] code = 66357771) The system which generated this result transmit courtney reference range : >=90 mL/min/1.7 3 m2. The reference r harjit was not used to interpret this result as normal/abnormal . Albumin (test code = 3.5 g/dL 4.2-5.5 L 81847-3) Anion Gap (test code = 10 mmol/L 5-16 87344507) Lab Interpretation Abnormal (test code = 72440-1) [facility] BMP POC docked [id number] 20:28:00 Test Item Value Reference Range Interpretation Comments Sodium POC (test code = 21324722) 139 mmol/L 136-145 Potassium POC (test code = 3.3 mmol/L 3.5-5.1 L 81594329) Chloride POC (test code = 101 mmol/L 98-107 52631867) TCO2 POC (test code = 40886865) 26 mmol/L 21-32 --- Urea Nitrogen POC (test code = 8 mg/dL 7-18 28659748) Glucose POC (test code = 31917594) 142 mg/dL 74-106 H Hemoglobin POC (test code = 14.3 g/dL 12-16 34778989) Hematocrit POC (test code = 42.0 % 37-47 72965873) Lab Interpretation (test code = Abnormal 21732-4) [facility] CREATININE POC docked [id number] 20:13:00 Test Item Value Reference Range Interpretation Comments Creatinine POC (test 1.1 mg/dL 0.6-1.3 code = 89971970) GFR, Estimated (test 87 See_Comment L [Autom ated message] code = 63825773) The system which generated this result transmit courtney reference range : >=90 mL/min/1.7 3 m2. The reference r harjit was not used to interpret this result as normal/abnormal . Lab Interpretation (test Abnormal code = 52663-3) [facility] [id number] 09:44:28 Test Item Value Reference Range Interpretation Comments RPR Qual (test code = RPR Qual) Non-Reactive Non-Reactive Reactive Control (test code = Reactive Reactive Control) Weak Reactive Control (test Weak Reactive code = Weak Reactive Control) Non-Reactive Control (test code Non-Reactive = Non-Reactive Control) Lot # (test code = Lot #) [id number] N Expiration Dt (test code = 07-09-2020 N Expiration Dt) Thyroid Stimulating [id number] 08:27:57 Test Item Value Reference Range Interpretation Comments TSH (test code = TSH) 1.970 mIU/mL 0.270-4.200 Lipid [id number] 08:21:36 Test Item Value Reference Range Interpretation Comments Cholesterol Total 132 mg/dL 0-200 RISK OF HE ART (test code = DISEASEPublishe d by Cholesterol Total) [employer] Libertad lyte Optimal Borderl ine [...] is LDL/HDL Ratio=L DL Calc/HDL Chol Hemoglobin [id number] 08:14:15 Test Item Value Reference Range Interpretation Comments Hemoglobin A1c (test code 5.7 % 4.8-5.9 No n Diabetic = Hemoglobin A1c) 4.8-5.9%Di abetic <7.0% TROPONIN I [id number] 09:35:00 Test Item Value Reference Range Interpretation Comments TROPONIN I RAPID 0.01 NG/ML 0.00-0.08 N 0.00 - 0.08 (test code = Normal0.09 - 0. 40 TROPIRAP) Indeterminate f or AMI 0.41 and above Compatible with AMI CBC W/AUTO [id number] 20:37:00 Test Item Value Reference Range Interpretation [...] = 0.00 K/mm3 0.00-0.20 N NRBC#) PLATELET [id number] 20:37:00 Test Item Value Reference Range Interpretation Comments PLATELET ESTIMATE (test code DECREASED ADEQ A PLT.EST. 98,750 = PLTEST) PLATELET [id number] 20:37:00 Test Item Value Reference Range Interpretation Comments PLATELET MORPHOLOGY (test VARIABLE PLT SIZE NORMAL A code = PLTMORPH) HEPATIC FUNCTION [id number] 20:14:00 Test Item Value Reference Range Interpretation [...] TOTAL (test code = ALKP) CBC W/AUTO [id number] 19:03:00 Test Item Value Reference Range Interpretation [...] 0.00 K/mm3 0.00-0.20 N NRBC#) CBC W/AUTO [id number] 19:03:00 Test Item Value Reference Range Interpretation [...] 0.00 K/mm3 0.00-0.20 N NRBC#) CHEMISTRY 8 [id number] 18:55:00 Test Item Value Reference Range Interpretation [...] 0.6-1.0 L CREATBED) - XR CHEST 1 [id number] 18:27:00 FAX: Isha Rico, Camps: ER St: REG Name: [facility] : 1985 Age/S: 32/M [address] Unit #: [id number] Loc: [place], [place] [address] Phys: Isha Rico MD Acct: [id number] Dis Date: Status: REG ER PHONE #: [phone] Exam Date: 09/14/2018 1815 FAX #: [phone] Reason: chest pain EXAMS: CPT CODE: [id number] XR CHEST 1 V 92138 Examination: Chest 1 view Location code: S17 Comparison: None Discussion: Clinical history is remarkable for chest pain. Cardiac silhouette is normal in size. Coarsened interstitial changes are present, no consolidation or effusion identified. Osseous structures are unremarkable. Impression: Coarsened interstitial change, no acute finding. at 1827 Reported and signed by: NAVIN VINES M.D. CC: Isah Rico MD Technologist: DAVID OSMAN RT(R) (ARRT) Transcribed Date/Time/By: 09/14/2018 (1826) :[id number] Orig Print D/T: S: 09/14/2018 (281) Automated exposure control, iterative reconstruction technique, and/oradjustment of mA and/or kV according to patient's size was utilizedfor optimum radiation dose reduction. PAGE 1 Signed Report
[2020-09-17 20:29] LABS: Absolute Lymphocytes (CBC) 0.3 K/uL (0.7-4.9); Basophils % 0.9 % (0-1.3); Lymphocytes % 6.1 % (15.3-44.8); MPV 9.1 fL (7.6-11.3); RBC Red Blood Cell Count 3.64 M/uL (4.33-5.43)
[2020-09-17 20:37] LABS: Protime INR 1.59
[2020-09-17 21:03] LABS: Bilirubin Direct 6.9 mg/dL (0-0.2); Magnesium 1.5 mg/dL (1.8-2.4); NT PRO-BNP 32 pg/mL (<125); Potassium 3.8 mmol/L (3.5-5.1); Protein, Total 7.7 g/dL (6.4-8.2); Troponin (Emerg Dept Use Only) < 0.02 ng/mL (0.0-0.045)
[2020-09-17 21:04] LABS: Anisocytosis 1+; Blood Morphology Comment NOTED (NOT SEEN); Hypochromasia 1+; Platelet Estimate DECR; White Blood Cell Scan OK (OK)
[2020-09-17 21:05] LABS: Target Cells 1+
[2020-09-17 21:06] LABS: Bilirubin Total 9.8 mg/dL (0.2-1.0)
[2020-09-17] MEDS ORDERED: THIAMINE 200 MG/2 ML INJ ONE (21:09)
[2020-09-17] MEDS ORDERED: MORPHINE 4 MG/ML SYR ONE (21:09)
[2020-09-17] MEDS ORDERED: ONDANSETRON 4 MG/2 ML VIAL ONE (21:09)
[2020-09-17] MEDS ORDERED: PANTOPRAZOLE 40 MG INJ ONE (21:09)
[2020-09-17] MEDS ORDERED: MULTIVITAMINS 10 ML VIAL (INJ) IV ONE (21:10)
[2020-09-17] MEDS ORDERED: NA CHLORIDE 0.9% 2,000 ML ONE (21:10)
[2020-09-17] MEDS ORDERED: FOLIC ACID 5 MG/ML VIAL ONE (21:11)
--- NOTE | 2020-09-17 21:14 | RAD REPORT ---
EXAM DESCRIPTION: Fly Single View09/17/2020 8:45 pm CLINICAL HISTORY: Cough COMPARISON: none FINDINGS: The lungs appear clear of acute infiltrate. The heart is normal size IMPRESSION: No acute abnormalities displayed
[2020-09-18] MEDS ORDERED: MORPHINE 4 MG/ML SYR ONE (00:23)
[2020-09-18] MEDS ORDERED: FUROSEMIDE 20 MG/ 2ML VIAL ONE ×2 (00:23→06:06)
[2020-09-18] MEDS ORDERED: DIAZEPAM 10 MG/2 ML INJ SYRINGE ONE ×3 (00:24→03:46)
[2020-09-18] MEDS ORDERED: ONDANSETRON 4 MG/2 ML VIAL ONE (00:24)
[2020-09-18] MEDS ORDERED: FUROSEMIDE 40 MG/4 ML VIAL ONE (01:43)
--- NOTE | 2020-09-18 04:10 | ER ---
Nurse's Notes [facility] Name: Adam Devi Age: 34 yrs Sex: Male : 1985 Arrival Date: 09/17/2020 Time: 16:09 Bed 19 Private MD: Diagnosis: Alcohol dependence;Cholelithiasis;Alcoholic cirrhosis of liver Presentation: 09/17 16:09 Chief complaint: EMS states: He was lifting a box when he felt pain on his belly 2 ca1 hours prior to calling us on scene. VS stable. BP 141/79 R arm, 143/87 L arm. Coronavirus screen: Client denies travel out of the [place] in the last 14 days. At this time, the client does not indicate any symptoms associated with coronavirus-19. Ebola Screen: Patient negative for fever greater than or equal to 101.5 degrees Fahrenheit, and additional compatible Ebola Virus Disease symptoms Patient denies exposure to infectious person. Patient denies travel to an Ebola-affected area in the 21 days before illness onset. No symptoms or risks identified at this time. Risk Assessment: Do you want to hurt yourself or someone else? Patient reports no desire to harm self or others. Onset of symptoms was September 17, 2020 at 13:00. 16:09 Method Of Arrival: EMS: [facility] ca1 16:57 Initial Sepsis Screen: Does the patient meet any 2 criteria? No. Patient's initial ca1 sepsis screen is negative. Does the patient have a suspected source of infection? No. Patient's initial sepsis screen is negative. 16:57 Acuity: MAEGAN 3 ca1 Historical: - Allergies: 16:14 Aspirin; ca1 16:14 Vancomycin; ca1 - PMHx: 16:14 Anxiety; Cirrhosis; Depression; diabetes (resvolved); Hypertension; ca1 - Immunization history:: Flu vaccine is up to date. - Social history:: Smoking status: Patient reports the use of cigarette tobacco products, smokes one-half pack cigarettes per day, Patient/guardian denies using alcohol, street drugs, The patient lives with family. - Family history:: not pertinent. Screenin/12 11:35 Abuse screen: Denies threats or abuse. Nutritional screening: No deficits noted. bw Tuberculosis screening: No symptoms or risk factors identified. Fall Risk Mental Status- Overestimates/Forgets Limitations (15 pts.). Assessment: 09/17 19:00 General: Appears in no apparent distress. uncomfortable, Behavior is cooperative, jb4 anxious, Smells of alcohol, Assisted patient with self cleaning. Reports being to weak to get up and make it to the restroom.. Pain: Complains of pain in abdomen, right leg and left leg Pain does not radiate. Pain currently is 1 out of 10 on a pain scale. Neuro: Level of Consciousness is awake, alert, obeys commands, Oriented to person, place, time, situation. Cardiovascular: Patient's skin is warm and dry. Respiratory: Airway is patent Respiratory effort is even, unlabored, Respiratory pattern is regular, symmetrical, Breath sounds with crackles bilaterally. GI: Reports lower abdominal pain, nausea. : No signs and/or symptoms were reported regarding the genitourinary system. EENT: No signs and/or symptoms were reported regarding the EENT system. Derm: Skin is intact, Skin is pink, warm \\T\\ dry. Musculoskeletal: Circulation, motion, and sensation intact. Range of motion: intact in all extremities. 20:00 Reassessment: Patient appears in no apparent distress at this time. Patient and/or jb4 family updated on plan of care and expected duration. Pain level reassessed. Patient is alert, oriented x 3, equal unlabored respirations, skin warm/dry/pink. 21:00 Reassessment: Patient appears in no apparent distress at this time. Patient and/or jb4 family updated on plan of care and expected duration. Pain level reassessed. Patient is alert, oriented x 3, equal unlabored respirations, skin warm/dry/pink. 21:52 Reassessment: Pt remains in CT. jb4 22:30 Reassessment: Patient appears in no apparent distress at this time. Patient and/or jb4 family updated on plan of care and expected duration. Pain level reassessed. Patient is alert, oriented x 3, equal unlabored respirations, skin warm/dry/pink. 23:30 Reassessment: Patient appears in no apparent distress at this time. Patient and/or jb4 family updated on plan of care and expected duration. Pain level reassessed. Patient is alert, oriented x 3, equal unlabored respirations, skin warm/dry/pink. 09/18 00:00 Reassessment: Tremors noted, provider notified, see MAR for orders. jb4 00:30 Reassessment: Patient and/or family updated on plan of care and expected duration. Pain jb4 level reassessed. Pt resting in bed with no s/s of pain or distress noted. O2 desat to 82 on RA after morphine and valium administration. Placed on 2L NC per protocol. 01:20 Reassessment: PT resting with eyes closed, wakens with ease to verbal stimuli. Crackles jb4 noted to be more prominent than initial assessment. Provider notified. IV infusions discontinued per Providers orders. 02:30 Reassessment: Patient appears in no apparent distress at this time. Patient and/or jb4 family updated on plan of care and expected duration. Pain level reassessed. Patient is alert, oriented x 3, equal unlabored respirations, skin warm/dry/pink. PT reports being able to breathe more easily after Lasix administration. Reports that he currently cannot urinate. Patient states feeling better. 03:44 Reassessment: PT put back on NC after valium administration Raised to 45 degree sitting jb4 position. resting in bed with eye closed, respirations are even and unlabored. Wakens to verbal stimuli. 04:00 Reassessment: Provider notified that Pt continues to have crackles IRAJ, that O2 jb4 saturations drop to 75-80 after each dose of 10mg of Valium. Pt continues to be unable to void. Bladder scanner performed. Scanned shows 368ml in the bladder. Provider notified. 05:00 Reassessment: Patient appears in no apparent distress at this time. Patient and/or jb4 family updated on plan of care and expected duration. Pain level reassessed. Patient is alert, oriented x 3, equal unlabored respirations, skin warm/dry/pink. 06:00 Reassessment: Patient appears in no apparent distress at this time. Patient and/or jb4 family updated on plan of care and expected duration. Pain level reassessed. Patient is alert, oriented x 3, equal unlabored respirations, skin warm/dry/pink. 07:00 Reassessment: Patient appears in no apparent distress at this time. No changes from bw previously documented assessment. Patient and/or family updated on plan of care and expected duration. Pain level reassessed. Patient is alert, oriented x 3, equal unlabored respirations, skin warm/dry/pink. 08:00 Reassessment: Patient appears in no apparent distress at this time. No changes from bw previously documented assessment. Patient and/or family updated on plan of care and expected duration. Pain level reassessed. Patient is alert, oriented x 3, equal unlabored respirations, skin warm/dry/pink. 09:00 Reassessment: Patient appears in no apparent distress at this time. No changes from bw previously documented assessment. Patient and/or family updated on plan of care and expected duration. Pain level reassessed. Patient is alert, oriented x 3, equal unlabored respirations, skin warm/dry/pink. SPOKE WITH PT MOTHER. VERBAL PERMISSION FROM PT TO GIVE HIS MEDICAL INFO OVER THE PHONE. UPDATED ON POC AND PT CONDITION. WILL INFORM HER OF TRANSFER. 10:00 Reassessment: Patient appears in no apparent distress at this time. No changes from bw previously documented assessment. Patient and/or family updated on plan of care and expected duration. Pain level reassessed. Patient is alert, oriented x 3, equal unlabored respirations, skin warm/dry/pink. report given to Staci ENRIQUE, transfer nurse assuming care. 11:21 Reassessment: Patient appears in no apparent distress at this time. No changes from bw previously documented assessment. Patient and/or family updated on plan of care and expected duration. Pain level reassessed. Patient is alert, oriented x 3, equal unlabored respirations, skin warm/dry/pink. EMS here for pt transfer to [facility]. Pt VSS. Report given to EMS. Vital Signs: 09/17 16:57 BP 134 / 74; Pulse 122; Resp 20 S; Temp 98.5(O); Pulse Ox 95% on R/A; Weight 145.15 kg ca1 (R); Height 6 ft. 1 in. (185.42 cm) (R); Pain 8/10; 21:15 BP 107 / 63; Pulse 101; Resp 18; Pulse Ox 93% on R/A; jb4 22:30 BP 105 / 63; Pulse 107; Resp 16; Pulse Ox 95% on R/A; jb4 23:30 BP 105 / 63; Pulse 107; Resp 16; Pulse Ox 95% on R/A; jb4 03 00:30 BP 108 / 75; Pulse 103; Resp 18; Pulse Ox 97% on 2 lpm NC; jb4 01:30 BP 132 / 84; Pulse 107; Resp 17; Pulse Ox 97% on 2 lpm NC; jb4 03:00 BP 112 / 72; Pulse 110; Resp 18; Pulse Ox 97% on R/A; jb4 03:45 BP 121 / 64; Pulse 122; Resp 18; Pulse Ox 93% on 3 lpm NC; jb4 05:00 BP 107 / 65; Pulse 117; Resp 18; Pulse Ox 90% on 3 lpm NC; jb4 06:00 BP 129 / 80; Pulse 118; Resp 20; Pulse Ox 95% on 3 lpm NC; jb4 07:05 BP 130 / 88; Pulse 121; Resp 18; Pulse Ox 97% 2 lpm ; bw 09:02 BP 133 / 91; Pulse 116; Resp 18; Pulse Ox 98% 2 lpm ; Pain 7/10; bw 10:00 BP 131 / 68; Pulse 112; Resp 22; Pulse Ox 97% ; Pain 6/10; bw 11:21 BP 109 / 49; Pulse 108; Resp 24; Pulse Ox 100% 2 lpm ; Pain 7/10; bw 09/17 16:57 Body Mass Index 42.22 (145.15 kg, 185.42 cm) ca1 00:30 Place on 2L NC after mediaction administration. Provider notified. jb4 ED Course: 09/17 16:09 Patient arrived in ED. ds1 16:14 Arm band placed on right wrist. ca1 16:57 Triage completed. ca1 18:57 David Boo MD is Attending Physician. adrianne 19:00 Neil Shetty, RN is Primary Nurse. jb4 19:24 Jin Howell PA is PHCP. jr8 19:24 David Boo MD is Attending Physician. jr8 19:56 Attending Physician role handed off by David Boo MD jr8 19:56 Radha Waite MD is Attending Physician. jr8 09/18 00:50 CT Chest, Abdomen, Pelvis - W/Contrast In Process Unspecified. EDMS 00:59 US Abdomen Limited In Process Unspecified. EDMS 05:01 Humberto Villa is Hospitalizing Provider. ma2 07:41 initiated a transfer with Arun from the [facility] Transfer Center. eb 09:08 COVID-19 : Document "Date of Symptom Onset" if Symptomatic. Sent. bw 09:08 Alcohol Level Sent. bw 09:08 AMMONIA Sent. bw 09:08 Basic Metabolic Panel Sent. bw 09:08 CBC with Diff Sent. bw 09:08 Hepatic Function Sent. bw 09:08 Lipase Sent. bw 09:11 doc to doc was connected by Staci from the [facility] Transfer Center/ Dr. Bao Betts eb was connected with Dr. Schuster. 09:21 administrative approval given by Staci Harper/ patient has been accepted to the [facility] eb Brentonloren Barron Veronica 10 1054/ Dr Bao Crespo has accepted the patient in transfer/ report to be called to [phone]. 11:35 Patient has correct armband on for positive identification. Bed in low position. Call bw light in reach. Side rails up X2. Report given to Debora ENRIQUE [facility]. senior field engineer on. Pulse ox on. NIBP on. Warm blanket given. 11:35 No provider procedures requiring assistance completed. IV is patent, with fluids bw infusing freely, with good blood return, Flushed Converted IV to saline lock on. 11:38 Patient transferred, IV remains in place. bw Administered Medications: Discontinued: Banana Bag - (NS 0.9% 1000 ml, foLIC Acid 1 mg, Thiamine 100 mg, Multivitamin 1 amp) IV at calculated rate once Discontinued: NS 0.9% 1000 ml IV at 125 ml/hr continuous 09/17 20:46 Not Given (Duplicate Order): Thiamine 100 mg IV at bolus once jb4 21:17 Drug: ProTONIX 40 mg Route: IVP; Site: right upper arm; jb4 21:45 Follow up: Response: No adverse reaction jb4 21:18 Drug: Zofran (Ondansetron) 4 mg Route: IVP; Site: right upper arm; jb4 21:45 Follow up: Response: No adverse reaction; Marked relief of symptoms; Nausea is decreasedjb4 21:21 Drug: morphine 4 mg Route: IVP; Site: right upper arm; jb4 21:45 Follow up: Response: No adverse reaction; Marked relief of symptoms; Pain is decreased; jb4 RASS: Alert and Calm (0) 21:22 Drug: Banana Bag - (NS 0.9% 1000 ml, foLIC Acid 1 mg, Thiamine 100 mg, Multivitamin 1 jb4 amp) Route: IV; Rate: calculated rate; Site: right upper arm; 09/18 00:00 Follow up: Response: Crackles are more prominent. Provider notified.; IV Status: Order jb4 to discontinue infusion; IV Intake: 725ml 09/17 21:22 Drug: NS 0.9% 1000 ml Route: IV; Rate: 125 ml/hr; Site: right upper arm; jb4 09/18 00:00 Follow up: Response: Crackles more prominent, provider notified.; IV Status: Order to jb4 discontinue infusion; IV Intake: 140ml 00:10 Drug: Zofran (Ondansetron) 4 mg Route: IVP; Site: right upper arm; jb4 00:40 Follow up: Response: No adverse reaction; Marked relief of symptoms; Nausea is decreasedjb4 00:12 Drug: morphine 4 mg Route: IVP; Site: right upper arm; jb4 00:40 Follow up: Response: No adverse reaction; Marked relief of symptoms; Pain is decreased; jb4 RASS: Drowsy (-1) 00:13 Drug: Lasix 20 mg Route: IVP; Site: right upper arm; jb4 00:45 Follow up: Response: No adverse reaction jb4 00:13 Drug: Valium 5 mg Route: IVP; Site: right upper arm; jb4 00:45 Follow up: Response: No adverse reaction; Marked relief of symptoms jb4 01:32 Drug: Lasix 40 mg Route: IVP; Site: right upper arm; jb4 02:00 Follow up: Response: No adverse reaction jb4 02:00 Drug: Valium 10 mg Route: IVP; Site: right upper arm; jb4 02:30 Follow up: Response: No adverse reaction; Marked relief of symptoms jb4 03:45 Drug: Valium 10 mg Route: IVP; Site: right upper arm; jb4 04:15 Follow up: Response: No adverse reaction; Marked relief of symptoms jb4 05:50 Drug: Lasix 10 mg Route: IVP; Site: right upper arm; jb4 06:33 Follow up: Response: No adverse reaction jb4 Intake: 00:00 IV: 140ml; Total: 140ml. jb4 00:00 IV: 725ml; Total: 865ml. jb4 Output: 05:45 Urine: 1ml (Voided); Total: 1ml. jb4 Outcome: 04:09 Discharge ordered by MD. mccarty 05:01 Decision to Hospitalize by Provider. ma2 11:34 ER care complete, transfer ordered by . dav 11:35 Transferred by ground EMS to [facility], to other acute care facility: . Transfer form completed. 11:35 Condition: stable 11:35 Instructed on the need for transfer. 11:40 Patient left the ED. ll1 Signatures: Dispatcher [employer] EDMS David Boo MD MD cha Sanford, Demi ds1 Noreen Keller RN RN Jin Howell PA PA jr8 Bryson, James, RN RN jb4 Radha Waite MD MD ma2 Awilda Beckman Cheryl RN RN ca1 Frantz Ford RN RN ll1 Keesha Perry RN RN bw Corrections: (The following items were deleted from the chart) 01:21 03/11 19:00 Respiratory: Airway is patent Respiratory effort is even, unlabored, jb4 Respiratory pattern is regular, symmetrical, jb4 0312 09:06 08:00 Reassessment: Patient appears in no apparent distress at this time. No changes bw from previously documented assessment. Patient and/or family updated on plan of care and expected duration. Pain level reassessed. Patient is alert, oriented x 3, equal unlabored respirations, skin warm/dry/pink. bw
--- NOTE | 2020-09-18 04:10 | EDPHYS ---
Physician Documentation [facility] Name: Adam Devi Age: 34 yrs Sex: Male : 1985 Arrival Date: 09/17/2020 Time: 16:09 Bed 19 Private MD: ED Physician Radha Waite HPI: 09/17 21:02 This 34 yrs old Male presents to ER via EMS with complaints of General ma2 Weakness, Abdominal Pain. 21:02 The patient presents with abdominal pain in the epigastric area, in the upper abdomen. ma2 Onset: The symptoms/episode began/occurred gradually, 1 week(s) ago. Associated signs and symptoms: Pertinent negatives: blood in stools, constipation, diarrhea, dysuria, hematuria, testicular pain, vomiting blood. Severity of pain: At its worst the pain was moderate in the emergency department the pain is unchanged. The patient has experienced similar episodes in the past. heavy alcohol drinking . Historical: - Allergies: 16:14 Aspirin; ca1 16:14 Vancomycin; ca1 - PMHx: 16:14 Anxiety; Cirrhosis; Depression; diabetes (resvolved); Hypertension; ca1 - Immunization history:: Flu vaccine is up to date. - Social history:: Smoking status: Patient reports the use of cigarette tobacco products, smokes one-half pack cigarettes per day, Patient/guardian denies using alcohol, street drugs, The patient lives with family. - Family history:: not pertinent. ROS: 21:02 Constitutional: Negative for fever, chills, and weight loss. ma2 21:02 All other systems are negative. Exam: 21:02 Constitutional: morbidely obese, tachycardic to 122, otherwise well developed, well ma2 nourished patient who is awake, alert, and in no acute distress. Head/Face: Normocephalic, atraumatic. Eyes: Pupils equal round and reactive to light, extra-ocular motions intact. Lids and lashes normal. Conjunctiva and sclera are non-icteric and not injected. Cornea within normal limits. Periorbital areas with no swelling, redness, or edema. ENT: Nares patent. No nasal discharge, no septal abnormalities noted. Tympanic membranes are normal and external auditory canals are clear. Oropharynx with no redness, swelling, or masses, exudates, or evidence of obstruction, uvula midline. Mucous membranes moist. Neck: Trachea midline, no thyromegaly or masses palpated, and no cervical lymphadenopathy. Supple, full range of motion without nuchal rigidity, or vertebral point tenderness. No Meningismus. Chest/axilla: Normal chest wall appearance and motion. Nontender with no deformity. No lesions are appreciated. Cardiovascular: Regular rate and rhythm with a normal S1 and S2. No gallops, murmurs, or rubs. Normal PMI, no JVD. No pulse deficits. Respiratory: Lungs have equal breath sounds bilaterally, clear to auscultation and percussion. No rales, rhonchi or wheezes noted. No increased work of breathing, no retractions or nasal flaring. Abdomen/GI: Soft, non-tender, with normal bowel sounds. No distension or tympany. No guarding or rebound. No evidence of tenderness throughout. Back: No spinal tenderness. No costovertebral tenderness. Full range of motion. Skin: Warm, dry with normal turgor. Normal color with no rashes, no lesions, and no evidence of cellulitis. MS/ Extremity: Pulses equal, no cyanosis. Neurovascular intact. Full, normal range of motion. Neuro: Awake and alert, GCS 15, oriented to person, place, time, and situation. Cranial nerves II-XII grossly intact. Motor strength 5/5 in all extremities. Sensory grossly intact. Cerebellar exam normal. Normal gait. Vital Signs: 16:57 BP 134 / 74; Pulse 122; Resp 20 S; Temp 98.5(O); Pulse Ox 95% on R/A; Weight 145.15 kg ca1 (R); Height 6 ft. 1 in. (185.42 cm) (R); Pain 8/10; 21:15 BP 107 / 63; Pulse 101; Resp 18; Pulse Ox 93% on R/A; jb4 22:30 BP 105 / 63; Pulse 107; Resp 16; Pulse Ox 95% on R/A; jb4 23:30 BP 105 / 63; Pulse 107; Resp 16; Pulse Ox 95% on R/A; jb4 03 00:30 BP 108 / 75; Pulse 103; Resp 18; Pulse Ox 97% on 2 lpm NC; jb4 01:30 BP 132 / 84; Pulse 107; Resp 17; Pulse Ox 97% on 2 lpm NC; jb4 03:00 BP 112 / 72; Pulse 110; Resp 18; Pulse Ox 97% on R/A; jb4 03:45 BP 121 / 64; Pulse 122; Resp 18; Pulse Ox 93% on 3 lpm NC; jb4 05:00 BP 107 / 65; Pulse 117; Resp 18; Pulse Ox 90% on 3 lpm NC; jb4 06:00 BP 129 / 80; Pulse 118; Resp 20; Pulse Ox 95% on 3 lpm NC; jb4 07:05 BP 130 / 88; Pulse 121; Resp 18; Pulse Ox 97% 2 lpm ; bw 09:02 BP 133 / 91; Pulse 116; Resp 18; Pulse Ox 98% 2 lpm ; Pain 7/10; bw 10:00 BP 131 / 68; Pulse 112; Resp 22; Pulse Ox 97% ; Pain 6/10; bw 11:21 BP 109 / 49; Pulse 108; Resp 24; Pulse Ox 100% 2 lpm ; Pain 7/10; bw 09/17 16:57 Body Mass Index 42.22 (145.15 kg, 185.42 cm) ca1 00:30 Place on 2L NC after mediaction administration. Provider notified. jb4 MDM: 09/17 18:57 Patient medically screened. adrianne 21:02 Differential diagnosis: gastritis, gastroesophageal reflux disease, Hepatitis, ma2 Irritable bowel syndrome. 09/18 04:05 Data reviewed: vital signs, nurses notes. Counseling: I had a detailed discussion with bibiana the patient and/or guardian regarding: the historical points, exam findings, and any diagnostic results supporting the discharge/admit diagnosis, the presence of at least one elevated blood pressure reading (>120/80) during this emergency department visit, the need for outpatient follow up. Response to treatment: the patient's symptoms have markedly improved after treatment. ED course: his liver enzymes are chronically elevated including d-bili and t bili, his pain is resolved, ct non critical and unchanged from baseline, us ruq was done to rule out acute kristie, he has no pain in ruq, acute kristie is unlikley, he is mildly tachycardic and has mild DT. HR is 100 now, no tremor, he is safe to be discharged . 05:00 ED course: patient is still tachycardic when he moves and in alcohol withdrawal. will ma2 admit, discussed with Ms. Fofana. 09/17 19:25 Order name: Basic Metabolic Panel [facility] 09/17 19:25 Order name: CBC with Diff [facility] 09/17 19:25 Order name: Hepatic Function [facility] 09/17 19:25 Order name: Lipase [facility] 09/17 19:59 Order name: Magnesium [facility] 09/17 19:59 Order name: NT PRO-BNP [facility] 09/17 19:59 Order name: PT-INR [facility] 09/17 19:59 Order name: Troponin (emerg Dept Use Only) [facility] 09/17 19:59 Order name: AMMONIA [facility] 09/17 19:59 Order name: Alcohol Level [facility] 09/17 20:39 Order name: CBC with Automated Diff; Complete Time: 22:03 [facility]SD 09/17 20:43 Order name: Protime (+INR); Complete Time: 20:51 [facility] 09/17 21:03 Order name: Troponin (Emerg Dept Use Only); Complete Time: 22:03 [facility] 09/17 21:03 Order name: NT PRO-BNP; Complete Time: 22:03 [facility] 09/17 19:59 Order name: XRAY Chest (1 view) [facility] 09/17 19:59 Order name: CT Chest, Abdomen, Pelvis - W/Contrast [facility] 09/17 21:03 Order name: Magnesium; Complete Time: 22:03 [facility] 09/17 21:03 Order name: Alcohol Serum/Plasma; Complete Time: 22:03 [facility] 09/17 21:05 Order name: CBC Smear Scan; Complete Time: 22:03 [facility] 09/17 21:06 Order name: Basic Metabolic Panel; Complete Time: 22:03 [facility] 09/17 21:06 Order name: Liver (Hepatic) Function; Complete Time: 22:03 [facility] 09/17 21:06 Order name: Lipase; Complete Time: 22:03 [facility] 09/17 21:15 Order name: RAD; Complete Time: 22:03 [facility] 09/17 21:44 Order name: Ammonia; Complete Time: 22:03 [facility] 09/17 22:42 Order name: US Abdomen Limited ma2 09/18 05:35 Order name: COVID-19 : Document "Date of Symptom Onset" if Symptomatic. jb4 09/18 06:54 Order name: SARS-COV-2 RT PCR [facility] 09/17 19:25 Order name: IV Saline Lock; Complete Time: 20:18 [facility] 09/17 19:25 Order name: Labs collected and sent; Complete Time: 20:18 [facility] 09/17 19:25 Order name: EKG - Nurse/Tech; Complete Time: 22:26 [facility] 09/17 19:25 Order name: EKG; Complete Time: 19:26 [facility] 09/17 19:59 Order name: Cardiac monitoring; Complete Time: 20:46 [facility] 09/17 19:59 Order name: O2 Per Protocol; Complete Time: 20:38 [facility] 09/17 19:59 Order name: O2 Sat Monitoring; Complete Time: 20:38 [facility] Administered Medications: Discontinued: Banana Bag - (NS 0.9% 1000 ml, foLIC Acid 1 mg, Thiamine 100 mg, Multivitamin 1 amp) IV at calculated rate once Discontinued: NS 0.9% 1000 ml IV at 125 ml/hr continuous 09/17 20:46 Not Given (Duplicate Order): Thiamine 100 mg IV at bolus once 4 21:17 Drug: ProTONIX 40 mg Route: IVP; Site: right upper arm; [facility] 21:45 Follow up: Response: No adverse reaction 4 21:18 Drug: Zofran (Ondansetron) 4 mg Route: IVP; Site: right upper arm; 4 21:45 Follow up: Response: No adverse reaction; Marked relief of symptoms; Nausea is decreasedjb4 21:21 Drug: morphine 4 mg Route: IVP; Site: right upper arm; 4 21:45 Follow up: Response: No adverse reaction; Marked relief of symptoms; Pain is decreased; [facility] RASS: Alert and Calm (0) 21:22 Drug: Banana Bag - (NS 0.9% 1000 ml, foLIC Acid 1 mg, Thiamine 100 mg, Multivitamin 1 jb4 amp) Route: IV; Rate: calculated rate; Site: right upper arm; 09/18 00:00 Follow up: Response: Crackles are more prominent. Provider notified.; IV Status: Order jb to discontinue infusion; IV Intake: 725ml 09/17 21:22 Drug: NS 0.9% 1000 ml Route: IV; Rate: 125 ml/hr; Site: right upper arm; 4 09/18 00:00 Follow up: Response: Crackles more prominent, provider notified.; IV Status: Order to jb4 discontinue infusion; IV Intake: 140ml 00:10 Drug: Zofran (Ondansetron) 4 mg Route: IVP; Site: right upper arm; jb4 00:40 Follow up: Response: No adverse reaction; Marked relief of symptoms; Nausea is decreasedjb4 00:12 Drug: morphine 4 mg Route: IVP; Site: right upper arm; jb4 00:40 Follow up: Response: No adverse reaction; Marked relief of symptoms; Pain is decreased; jb4 RASS: Drowsy (-1) 00:13 Drug: Lasix 20 mg Route: IVP; Site: right upper arm; jb4 00:45 Follow up: Response: No adverse reaction jb4 00:13 Drug: Valium 5 mg Route: IVP; Site: right upper arm; jb4 00:45 Follow up: Response: No adverse reaction; Marked relief of symptoms jb4 01:32 Drug: Lasix 40 mg Route: IVP; Site: right upper arm; jb4 02:00 Follow up: Response: No adverse reaction jb4 02:00 Drug: Valium 10 mg Route: IVP; Site: right upper arm; jb4 02:30 Follow up: Response: No adverse reaction; Marked relief of symptoms jb4 03:45 Drug: Valium 10 mg Route: IVP; Site: right upper arm; jb4 04:15 Follow up: Response: No adverse reaction; Marked relief of symptoms jb4 05:50 Drug: Lasix 10 mg Route: IVP; Site: right upper arm; jb4 06:33 Follow up: Response: No adverse reaction jb4 Disposition: 09/18/20 11:34 Transfer ordered to [facility]. Diagnosis are Alcohol dependence, Cholelithiasis, Alcoholic cirrhosis of liver. - Reason for transfer: Higher level of care. - Accepting physician is Dr. Bao Crespo. - Condition is Stable. - Problem is an ongoing problem. - Symptoms are unchanged. Signatures: Dispatcher [employer] EDDavid Petty MD MD cha Smirch, Shelby, RN RN Jin Nichols PA PA jr8 David Briscoe PA PA cp Bryson, James, RN RN jb4 Radha Waite MD MD ma2 Mariely Clemons RN RN ca1 Frantz Ford RN RN ll1 Corrections: (The following items were deleted from the chart) 05:01 04:09 09/18/2020 04:09 Discharged to Home. Impression: Alcohol dependence with ma2 withdrawal, uncomplicated. Condition is Stable. Prescriptions for Zofran 4 mg Oral Tablet - take 1 tablet by ORAL route every 12 hours As needed; 20 tablet, buspirone 5 mg Oral tablet - take 1 tablet by ORAL route 3 times per day; 60 tablet. and Forms are Medication Reconciliation Form, Thank You Letter, Antibiotic Education, Prescription Opioid Use. Follow up: Private Physician; When: Tomorrow; Reason: If symptoms return. ma2 05:53 05:35 CORONAVIRUS ordered. EDMS EDMS 11:22 05:01 Hospitalization Ordered by Humberto Villa for Observation. Preliminary diagnosis ss is Alcohol dependence with withdrawal delirium; Tachycardia, unspecified; Generalized abdominal pain. Bed requested for Telemetry/MedSurg (observation). Status is Observation. Condition is Stable. Problem is new. Symptoms are unchanged. ma2 11:35 11:34 09/18/2020 11:34 Transfer ordered to [facility]. Diagnosis is Alcohol ss dependence; Cholelithiasis. Reason for transfer: Higher level of care. Accepting physician is Dr. aBo Crespo. Condition is Stable. Problem is an ongoing problem. Symptoms are unchanged. ss 11:40 11:35 09/18/2020 11:34 Transfer ordered to [facility]. Diagnosis is Alcohol ll1 dependence; Cholelithiasis; Alcoholic cirrhosis of liver. Reason for transfer: Higher level of care. Accepting physician is Dr. Bao Crespo. Condition is Stable. Problem is an ongoing problem. Symptoms are unchanged. ss
--- NOTE | 2020-09-18 08:29 | RAD REPORT ---
EXAM DESCRIPTION: US - Abdomen Exam Limited - 09/17/2020 11:02 pm CLINICAL HISTORY: RUQ abd pain COMPARISON: Chest Abdomen Pelvis W Cont dated 09/17/2020 FINDINGS: The gallbladder demonstrates small gallstones. Calcifications along the wall of gallbladde r likely also present. Due to large body habitus common duct could not be visualized. Liver parenchyma with poorly visualized due to body habitus 2 IMPRESSION: Exam is very limited by patient body habitus. Cholelithiasis with mild gallbladder distension noted. Calcifications within the wall of gallbladder also suspected.
--- NOTE | 2020-09-18 09:22 | P.CNS ---
Date of Consult: 09/18/20 Reason for Consult: Abdominal pain/elevated liver function testing Requesting Physician: Radha Waite Primary Care Provider: [facility] Chief Complaint: Abdominal pain/generalized weakness History of Present Illness: Patient is a 34-year-old gentleman who came to the hospital with abdominal pain. Pain was mainly in the epigastric region. Patient also had generalized weakness. He has been drinking heavily but stopped yesterday. He came into the emergency room for further evaluation. He was found to have elevated bilirubin of 9.8. Patient was having some tremor so he was given some Valium to help bryn viate them. Patient follows up a [facility] hepatology Clinic. He has not been there in about a year. He had a CT scan and an ultrasound which revealed cholelithiasis. There was gallbladder wall thickening. Possible cholecystitis. We may do a MRCP if patient remains. Will initiate transfer as we do not have GI on-call. Will call [facility] to initiate transfer. Allergies vancomycin Allergy (Unverified 04/30/17 10:00) Unknown aspirin Adverse Reaction (Severe, Verified 12/09/11 17:01) Shortness of breath Home Medications: Carvedilol 6.25 mg PO BID 12/09/11 Losartan Potassium [Cozaar] 100 mg PO DAILY 12/09/11 Metformin HCl 1,000 mg PO BID 12/09/11 Ciprofloxacin HCl [Cipro] 500 mg PO BID #0 tablet 12/10/11 Hydrocodone/Acetaminophen [Vicodin Es 7.5-750 mg Tablet] 1 tab PO Q4H PRN #0 tablet 12/10/11 Sulfamethoxazole/Trimethoprim [Bactrim Ds Tablet] 1 tab PO BID #0 tablet 12/10/11 - Past Medical/Surgical History Diabetic: Yes -: Morbid obesity -: Alcoholic liver cirrhosis Past Surgical History: Patient denies surgical history - Social History Smoking Status: Current some day smoker Alcohol use: Yes CD- Drugs: No Review of Systems 10-point ROS is otherwise unremarkable Physical Examination Reviewed General: Alert, In no apparent distress, Oriented x3, Obese HEENT: Atraumatic, Normocephalic, Scleral icterus Neck: Supple, 2+ carotid pulse no bruit, JVD not distended, No Thyromegaly Respiratory: Clear to auscultation bilaterally, Normal air movement Cardiovascular: Regular rate/rhythm, Normal S1 S2, No murmurs Gastrointestinal: Normal bowel sounds, Soft and benign, No masses, No rebound, No guarding, Distended, Tenderness Musculoskeletal: No clubbing, Swelling Integumentary: No rashes Neurological: Normal gait, Normal speech, Normal strength at 5/5 x4 extr, Normal tone, Sensation intact, Cranial nerves 3-12 intact Laboratory Data (last 24 hrs) 09/17/20 20:15: PT 18.4 H, INR 1.59 09/17/20 20:15: Magnesium 1.5 L 09/17/20 20:15: WBC 4.30, Hgb 12.1 L, Hct 35.0 L, Plt Count 28 L* 09/17/20 20:15: Sodium 132 L, Potassium 3.8, BUN 13, Creatinine 1.00, Glucose 166 H, Total Bilirubin 9.8 H*, AST 188 H, ALT 45, Alkaline Phosphatase 242 H, Li pase 183 - Problems (1) Alcoholic cirrhosis of liver Current Visit: Yes Status: Acute (2) Acute cholecystitis Current Visit: Yes Status: Acute (3) Cholelithiasis Current Visit: Yes Status: Acute (4) Morbid obesity Current Visit: Yes Status: Acute (5) Alcohol abuse Current Visit: Yes Status: Acute Conclusions/ Impression: Plan: 1. Gentle hydration 2. MRCP 3. Possible transfer to [facility] 4. IV antibiotics 5. Pain control 6.GI DVT prophylaxis Critical Care: No Time Spent Managing Pts care (In Minutes): 45
[2020-09-18] MEDS ORDERED: CEFTRIAXONE 1 GM/NS 50 ML 1 GM/50 ML BAG IV ONE (09:29)
[2020-09-18] MEDS ORDERED: DIAZEPAM 10 MG/2 ML INJ SYRINGE IV ONE (09:30)
[2020-09-18] MEDS ORDERED: METRONIDAZOLE 500mg IVPB 500 MG/100 ML BAG IV ONE (09:30)
[2020-09-18] MEDS ORDERED: FENTANYL CITR 100 MCG/2 ML IV PRN (09:34)
--- NOTE | 2020-09-18 10:34 | RAD REPORT ---
EXAM DESCRIPTION: CT CHEST WITH IV CONTRAST CLINICAL HISTORY: Congestion; Dyspnea TECHNIQUE: Contiguous axial images obtained through the chest following the uneventful administratio n of IV contrast. Coronal and sagittal reformatted images provided. This exam was performed according to our departmental dose-optimization program, which includes autom ated exposure control, adjustment of the mA and/or kV according to patient size and/or use of iterati ve reconstruction technique. COMPARISON: No prior exams provided for comparison. FINDINGS: Lungs: Scattered left-sided calcified granulomata. No focal consolidation. Airways are pat ent. Pleura: No effusion. No pneumothorax. Heart and pericardium: The heart is normal in size. No pericardial effusion. Mediastinum and narda: Calcified left hilar lymph nodes. No pathologically enlarged lymph nodes. Lower neck and chest wall: Unremarkable Vessels: Minimal atherosclerotic disease. No thoracic aortic aneurysm. Bones: Multilevel spondylosis. No acute fracture. EXAM DESCRIPTION: CT ABDOMEN PELVIS WITH IV CONTRAST CLINICAL HISTORY: Abdominal distention; Pain TECHNIQUE: Contiguous axial images obtained through the abdomen and pelvis following the uneventful administration of IV contrast. Coronal and sagittal reformatted images were provided. This exam was performed according to our departmental dose-optimization program, which includes autom ated exposure control, adjustment of the mA and/or kV according to patient sizeand/or use of iterativ e reconstruction technique. COMPARISON: None available for comparison. FINDINGS: Artifacts: Technically limited secondary to quantum mottle. Liver: The liver is enlarged with diffuse surface contour nodularity. Gallbladder and biliary system: Numerous gallstones. Mild gallbladder wall thickening as well as intr amural calcifications. Pancreas: Unremarkable Spleen: Unremarkable Adrenals: Unremarkable Kidneys: Grossly normal renal cortical enhancement. No calculi. No hydronephrosis. Bowel: No obstruction. No appreciable mucosal thickening. Appendix: Normal caliber appendix. No findings to suggest acute appendicitis. Urinary bladder: Unremarkable Reproductive: Unremarkable as visualized Lymph nodes: No pathologically enlarged lymph nodes. Peritoneum: Small amount of abdominal and pelvic ascites, predominantly right-sided. No free air. Vessels: No abdominal aortic aneurysm. Recanalization of the umbilical vein. Paraesophageal and left abdominal varices. The main portal, splenic and superior mesenteric veins are grossly patent. Abdominal wall: Body wall edema. Bones: Multilevel spondylosis. No acute fracture. IMPRESSION: CT CHEST: 1. No acute infiltrate. 2. Other findings as above. CT ABDOMEN PELVIS: 1. Findings compatible with hepatic cirrhosis and sequela of portal hypertension. Small amount of a bdominal and pelvic ascites. 2. Cholelithiasis and intramural calcifications. There is mild nonspecific gallbladder wall thicken ing, a finding which can be seen in hepatic dysfunction, immunocompromise, hypoalbuminemia, acute or chronic cholecystitis among the diagnostic possibilities. 3. Other findings as above. Electronically signed by: Tip Wallace MD 09/17/2020 10:33 PM IGNITION SPECIALIST Due to temporary technical issues with the PACS/Fluency reporting system, reports are being signed by the in house radiologists without review as a courtesy to insure prompt reporting. The interpreting radiologist is fully responsible for the content of the report.
[2020-09-18 11:45] VITALS: TEMP 98.5
[2020-09-18 12:03] VITALS: BP 109/49; O2SAT 100
--- NOTE | 2020-09-19 08:33 | EKG ---
Test Date: 2020-09-17 Test Time: 22:15:53 Furniture Technician: STEW MEASUREMENT RESULTS: Intervals: Rate: 100 HI: 198 QRSD: 116 QT: 372 QTc: 479 [place]: P: 69 HI: 198 QRS: -10 T: 32 INTERPRETIVE STATEMENTS: Normal sinus rhythm Normal ECG Compared to ECG 03/28/2020 22:23:53 Prolonged QT interval no longer present Electronically Signed On 09-19-20 08:29:31 TOW PICKER by Jaret Bates
== END 2020-09-18 11:40 | disposition short-term general hospital (02) ==
LOC: ER 16:08
DX: K80.00 Calculus of gallbladder with acute cholecystitis without obstruction (principal); K70.30 Alcoholic cirrhosis of liver without ascites; E66.01 Morbid (severe) obesity due to excess calories; F41.9 Anxiety disorder, unspecified; F32.9 Major depressive disorder, single episode, unspecified; I10 Essential (primary) hypertension; Z20.822 Contact with and (suspected) exposure to COVID-19; F17.210 Nicotine dependence, cigarettes, uncomplicated; Z68.41 Body mass index [BMI] 40.0-44.9, adult; F10.20 Alcohol dependence, uncomplicated; Y90.8 Blood alcohol level of 240 mg/100 ml or more
CPT/HCPCS: 36415; 71045; 71260; 74177; 76705; 80048; 80076; 80320; 82140; 83690; 83735; 83880; 84484; 85025; 85610; 93005; 96365; 96366; 96375; 99285; C9113; J1940; J2405; J3360; J3411; J7030; Q9967; U0003